=== PATIENT | female | born 1980 | race Caucasian/White ===

== ENCOUNTER 2021-09-10 08:20 | Inpatient (IN) | payer BC ==
[2021-09-10] MEDS ORDERED: LIDOCAINE 1% W/EPI 1:100,000 MDV 50 ML VIAL ONE (08:44)
[2021-09-10] MEDS ORDERED: MORPHINE 4 MG/ML SYR ONE (08:59)
[2021-09-10] MEDS ORDERED: ONDANSETRON 4 MG/2 ML VIAL ONE ×2 (09:00→12:08)
[2021-09-10 09:39] LABS: Absolute Lymphocytes (CBC) 1.6 K/uL (0.7-4.9); Hematocrit 41.4 % (36.0-45.0); Lymphocytes % 10.7 % (15.3-44.8); MPV 7.8 fL (7.6-11.3); RBC Red Blood Cell Count 4.67 M/uL (3.86-4.86)
--- NOTE | 2021-09-10 09:46 | RAD REPORT ---
EXAM DESCRIPTION: CT - Abdomen Pelvis W Contrast - 09/10/2021 9:23 am CLINICAL HISTORY: left sided pelvic abscess COMPARISON: None TECHNIQUE: Biphasic, helical CT imaging of the abdomen and pelvis was performed following 100 ml non -ionic IV contrast. No oral contrast administered. All CT scans are performed using dose optimization technique as appropriate and may include automated exposure control or mA/KV adjustment according to patient size. FINDINGS: No suspicious findings in the lung bases. Liver attenuation value indicates mild fatty infiltration. No focal liver lesion. Portal vein is norm al. No pancreatic or splenic abnormality seen. Gallbladder is distended. No wall thickening or edema evident on CT. Biliary tree within normal range. Symmetric renal function is seen with no hydronephrosis or suspicious renal mass. No pyelonephritis o r acute parenchymal process. Urinary bladder is mostly contracted limiting assessment. No adrenal abn ormalities. An exophytic 12 mm cyst is seen uppermost left kidney with an 18 millimeter simple cyst l ateral inferior right kidney. No dilated bowel loops or bowel wall thickening. Appendectomy clips are present. No acute GI finding identified. Rectosigmoid region anastomosis is present with no acute finding. Patient is believed to be status post reduction of a prior colostomy. . No free air or pneumatosis. No abnormal fluid collec tions in the peritoneal or retroperitoneal spaces. No mass or bulky lymphadenopathy. Small aortoilia c and left inguinal region reactive type lymph nodes are present. A supraumbilical ventral hernias present approximately 6-7 cm in diameter contain only fat. There are 2 defects in the wall 2.8 cm superiorly and 1.6 cm inferiorly at this hernia. This may be a single h ernia or 2 abutting fat filled hernias. Mesh material is present in the low pelvic abdominal wall fro m prior hernia repair. The left lower quadrant there is a hernia defect between the oblique and rectu s abdominis musculature. Bowel extends through this very wide neck defect with no bowel wall thickeni ng or edema of the fatty tissues. No suspicious bony findings. Uterus is partially resected. No focal abnormality at the vaginal cuff. Normal size right ovary is di splaced to the anterior superior aspect of the adnexa. Left ovary contains 3.3 centimeter and 2.3 lyle timeter cysts. The may be an additional 12 millimeter ovarian or paraovarian cyst. There is extensive infectious/inflammatory edema in the mid and left side fatty tissues from the mons pubis to the lower gluteal region traversing the perineum. In the labia region left-side vagina ther e is a 3 x 1 cm low-density collection that may be outer vaginal wall abscess. This extends into the fatty tissues anterior and laterally where there is a defined 6.5 x 1.5 centimeter abscess collection . IMPRESSION: A 6.5 x 1.5 centimeter abscess is present in the fatty tissues left lateral to the outer vaginal wall and labia with suspected small 3 x 1 centimeter abscess in the outer vaginal wall or la radha on the left. Extensive infectious/inflammatory stranding in the midline and left-side fatty tissues from the mons pubis to the lower gluteal fatty tissues. There is no air in the soft tissues. No intraperitoneal or retroperitoneal extension of the infectious/inflammatory process. Gallbladder is distended but no wall thickening or edema evident. No biliary tree dilatation. Multiple abdominal wall hernias as detailed in the body of the report. None show acute findings.
[2021-09-10 09:54] LABS: Albumin 2.7 g/dL (3.4-5.0); Bilirubin Total 0.9 mg/dL (0.2-1.0); Potassium 3.5 mmol/L (3.5-5.1); Protein, Total 7.3 g/dL (6.4-8.2)
[2021-09-10] MEDS ORDERED: VANCOMYCIN 1 GM/VIAL ONE (10:10)
[2021-09-10] MEDS ORDERED: WATER FOR INJ,STERILE 0 ML ONE (10:11)
[2021-09-10] MEDS ORDERED: VANCOMYCIN 1.5 GM in NA CHLORIDE 0.9% 500 ML IVPB ONE (11:00)
--- NOTE | 2021-09-10 11:07 | ER ---
Nurse's Notes [facility] Name: Juan Manuel Moya Age: 40 yrs Sex: Female : 1980 Arrival Date: 09/10/2021 Time: 08:26 Bed 5 Private MD: Diagnosis: Left Labial Cutaneous Abscess Presentation: 09/10 08:32 Chief complaint: Patient states: Shaved a week ago and a bump came up 2 days later, c/o jl7 abscess to left labia major. Coronavirus screen: At this time, the client does not indicate any symptoms associated with coronavirus-19. Ebola Screen: No symptoms or risks identified at this time. Initial Sepsis Screen: Does the patient meet any 2 criteria? No. Patient's initial sepsis screen is negative. Does the patient have a suspected source of infection? No. Patient's initial sepsis screen is negative. Risk Assessment: Do you want to hurt yourself or someone else? Patient reports no desire to harm self or others. Onset of symptoms was September 02, 2021. 08:32 Method Of Arrival: Ambulatory [facility] 08:32 Acuity: CHELSEY 3 jl7 Triage Assessment: 08:34 General: Appears in no apparent distress. uncomfortable, Behavior is calm, cooperative, jl7 appropriate for age. Pain: Complains of pain in pelvis Pain currently is 9 out of 10 on a pain scale. 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 - Social history:: Smoking status: Patient reports the use of cigarette tobacco products, smokes one-half pack cigarettes per day. Screenin:51 Abuse screen: Denies threats or abuse. Nutritional screening: No deficits noted. vg1 Tuberculosis screening: No symptoms or risk factors identified. Fall Risk None identified. Assessment: 08:51 General: Appears in no apparent distress. uncomfortable, Behavior is calm, cooperative. vg1 Pain: Complains of pain in groin Pain currently is 9 out of 10 on a pain scale. Pain began x 1 week. Neuro: Level of Consciousness is awake, alert, obeys commands, Oriented to person, place, time, situation. Cardiovascular: Patient's skin is warm and dry. Respiratory: Airway is patent Respiratory effort is even, unlabored. GI: No signs and/or symptoms were reported involving the gastrointestinal system. : No signs and/or symptoms were reported regarding the genitourinary system. EENT: No signs and/or symptoms were reported regarding the EENT system. Derm: Skin is intact, Skin is red, Abscess located on groin Reports pain. Musculoskeletal: Swelling present in groin. Vital Signs: 08:32 BP 156 / 89; Pulse 103; Resp 17; Temp 99.4(O); Pulse Ox 95% on R/A; Weight 107.95 kg; jl7 Height 5 ft. 3 in. (160.02 cm); Pain 9/10; 09:38 BP 111 / 63; Pulse 89; Resp 17; Pulse Ox 96% ; vg1 11:30 BP 109 / 68; Pulse 78; Resp 14; Pulse Ox 97% on R/A; vg1 08:32 Body Mass Index 42.16 (107.95 kg, 160.02 cm) jl7 ED Course: 08:26 Patient arrived in ED. mr 08:28 Kevin Bowling PA is PHCP. jmm 08:28 Edil Newton MD is Attending Physician. jmm 08:34 Triage completed. jl7 08:34 Arm band placed on right wrist. jl7 08:39 Shantal Wahl, RN is Primary Nurse. vg1 08:51 Patient has correct armband on for positive identification. Placed in gown. Bed in low vg1 position. Call light in reach. Side rails up X 1. 09:08 Initial lab(s) drawn, by me, sent to lab. Inserted saline lock: 20 gauge in left vg1 antecubital area, using aseptic technique. Blood collected. 09:08 First set of blood cultures drawn by me. vg1 09:22 CT Abd/Pelvis - IV Contrast Only In Process Unspecified. EDMS 09:[address] from [address]. vg1 11:00 Assist provider with pelvic exam: Set up pelvic tray. Performed by Kevin CEJA. iw 11:06 Kyaw Rodriguez is Hospitalizing Provider. m 11:34 to OR, with Nurse. vg1 Administered Medications: : Drug: Zofran (Ondansetron) 4 mg Route: IVP; Site: left antecubital; vg1 09:45 Follow up: Response: No adverse reaction vg1 09:11 Drug: morphine 4 mg Route: IVP; Site: left antecubital; vg1 09:45 Follow up: Response: No adverse reaction; Marked relief of symptoms vg1 11:06 Drug: vancoMYCIN 1.5 grams Route: IVPB; Rate: calculated rate; Site: left antecubital; iw 11:36 Follow up: IV Status: Infusion continued upon admission; pt taken to OR with IV vg1 antibiotics 11:26 Not Given (Physician Discretion): Lidocaine-Epinephrine -1%: (1:100,000) 20 ml 20 ml vg1 Infiltration once; to bedside Intake: Outcome: : Decision to Hospitalize by Provider. jmm 12:21 Patient left the ED. eb Signatures: Dispatcher [employer] EDMS Kevin Bowling PA PA jmm Rivera, Mary mr Williams, Irene, RN RN Neal Barber RN RN Karol Saez Victoria, RN RN vg1
--- NOTE | 2021-09-10 11:07 | EDPHYS ---
Physician Documentation [facility] Name: Juan Manuel Moya Age: 40 yrs Sex: Female : 1980 Arrival Date: 09/10/2021 Time: 08:26 Bed 5 Private MD: ED Physician Edil Newton HPI: 09/10 08:52 This 40 yrs old Female presents to ER via Ambulatory with complaints of Abscess. jmm 08:52 The patient presents with cellulitis of the pelvis. Onset: The symptoms/episode jmm began/occurred gradually, 2 day(s) ago. Possible cause(s): recently shaved area. Associated signs and symptoms: Pertinent positives: drainage, erythema, swelling. Modifying factors: the symptoms are alleviated by nothing, the symptoms are aggravated by pressure. The patient has not experienced similar symptoms in the past. 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 - Social history:: Smoking status: Patient reports the use of cigarette tobacco products, smokes one-half pack cigarettes per day. ROS: 08:52 Constitutional: Negative for fever, chills, and weight loss, Cardiovascular: Negative jmm for chest pain, palpitations, and edema, Respiratory: Negative for shortness of breath, cough, wheezing, and pleuritic chest pain. 08:52 Skin: Positive for abscess. 08:52 All other systems are negative. Exam: 08:52 Constitutional: This is a well developed, well nourished patient who is awake, alert, jmm and in no acute distress. Head/Face: atraumatic. Eyes: EOMI, no conjunctival erythema appreciated ENT: Moist Mucus Membranes Neck: Trachea midline, Supple Chest/axilla: Normal chest wall appearance and motion. Cardiovascular: Regular rate and rhythm. No edema appreciated Respiratory: Normal respirations, no respiratory distress appreciated Abdomen/GI: Non distended, soft 08:52 Skin: erythema and induration appreciated to the left labial region extending into the perineum. 08:52 Neuro: Orientation: is normal, Mentation: is normal, Memory: is normal. 08:52 Psych: Behavior/mood is pleasant, cooperative. Vital Signs: 08:32 BP 156 / 89; Pulse 103; Resp 17; Temp 99.4(O); Pulse Ox 95% on R/A; Weight 107.95 kg; jl7 Height 5 ft. 3 in. (160.02 cm); Pain 9/10; 09:38 BP 111 / 63; Pulse 89; Resp 17; Pulse Ox 96% ; vg1 11:30 BP 109 / 68; Pulse 78; Resp 14; Pulse Ox 97% on R/A; vg1 08:32 Body Mass Index 42.16 (107.95 kg, 160.02 cm) jl7 MDM: 08:50 Patient medically screened. [facility] 11:02 Data reviewed: vital signs, nurses notes. Counseling: I had a detailed discussion with [facility] the patient and/or guardian regarding:. 11:03 Counseling: I had a detailed discussion with the patient and/or guardian regarding: the [facility] historical points, exam findings, and any diagnostic results supporting the discharge/admit diagnosis, lab results, radiology results, the need for further work-up and treatment in the hospital. ED course: I discussed the patient with Dr. Acharya whom evaluated the patient at bedside. will take the patient to the or. requested consultation with gyn. [place] was contacted, is currently out of state. Left voicemail with Dr. Mccracken . I discussed the patient with Dr. Rodriguez whom accepted the patient to his service. . 09/10 08:50 Order name: CBC with Diff; Complete Time: 09:41 [facility] 09/10 08:50 Order name: CMP; Complete Time: 09:57 [facility] 09/10 08:50 Order name: Procalcitonin; Complete Time: 10:12 [facility] 09/10 08:50 Order name: Lactate; Complete Time: 10:05 [facility] 09/10 08:50 Order name: Blood Culture Adult (2) [facility] 09/10 10:12 Order name: SARS-COV-2 RT PCR (Document "Date of Onset" if Symptomatic) [facility] 09/10 08:38 Order name: Gown patient; Complete Time: 08:40 [facility] 09/10 08:50 Order name: Saline Lock; Complete Time: 09:19 [facility] 09/10 08:51 Order name: CT Abd/Pelvis - IV Contrast Only; Complete Time: 09:49 [facility] 09/10 10:13 Order name: SARS-COV-2 RT PCR; Complete Time: 11:38 EDMS Administered Medications: 09:09 Drug: Zofran (Ondansetron) 4 mg Route: IVP; Site: left antecubital; vg1 09:45 Follow up: Response: No adverse reaction vg1 09:11 Drug: morphine 4 mg Route: IVP; Site: left antecubital; vg1 09:45 Follow up: Response: No adverse reaction; Marked relief of symptoms vg1 11:06 Drug: vancoMYCIN 1.5 grams Route: IVPB; Rate: calculated rate; Site: left antecubital; iw 11:36 Follow up: IV Status: Infusion continued upon admission; pt taken to OR with IV vg1 antibiotics 11:26 Not Given (Physician Discretion): Lidocaine-Epinephrine -1%: (1:100,000) 20 ml 20 ml vg1 Infiltration once; to bedside Disposition: 19:28 Co-signature as Attending Physician, Edil Newton MD I agree with the assessment and kdr plan of care. Disposition Summary: 09/10/21 11:06 Hospitalization Ordered Hospitalization Status: Inpatient Admission [facility] Provider: Kyaw Rodriguez [facility] Condition: Stable [facility] Problem: new [facility] Symptoms: are unchanged [facility] Bed/Room Type: Standard [facility] Room Assignment: [facility] Diagnosis - Left Labial Cutaneous Abscess [facility] Forms: - Medication Reconciliation Form [facility] - SBAR form [facility] Signatures: Dispatcher [employer] EDMS Edil Newton MD MD kdr Kevin Bowling PA PA [facility] Alpa Jimenez, RN Neal New RN RN jl7 Shantal Wahl RN RN vg1
[2021-09-10] MEDS ORDERED: BUPIVACAINE 0.5% PF 10 ML VIAL ONE (11:38)
[2021-09-10] MEDS ORDERED: SODIUM HYPOCHLORITE 0.5% 473 ML ONE (11:38)
[2021-09-10] MEDS ORDERED: propofoL 200 MG/20 ML VIAL IV ONE (11:43)
[2021-09-10] MEDS ORDERED: FENTANYL CITR 100 MCG/2 ML ONE (11:43)
[2021-09-10] MEDS ORDERED: LIDOCAINE 2% MPF 5 ML VIAL ONE (11:43)
[2021-09-10] MEDS ORDERED: SODIUM HYPOCHLORITE 0.25% 473 ML ONE (11:48)
[2021-09-10] MEDS ORDERED: Ringers Lactate 1,000 ML IV ONE (11:52)
--- NOTE | 2021-09-10 11:54 | P.HP ---
Certification for Inpatient Patient admitted to: Inpatient With expected LOS: >2 Midnights Practitioner: I am a practitioner with admitting privileges, knowledge of patient current condition, hospital course, and medical plan of care. Services: Services provided to patient in accordance with Admission requirements found in Title 42 Section 412.3 of the Code of Federal Regulations Patient History Date of Service: 09/10/21 Reason for admission: Labia swelling and pain History of Present Illness: 40-year-old woman with a history of anxiety and depression, history of multiple abdominal surgeries for complications of diverticulosis including bowel resection, end-to-end anastomosis, colostomy reversal presented to the emergency department with a complaint of progressive pain and swelling of the left labia. Patient stated her symptoms started after she shaved her pubic area 1 week ago. She felt a lump that progressively became bigger and painful. She denies any fever. CT abdomen pelvis done in the emergency department demonstrate multiple abscesses-lateral to the left vagina wall, left labia and inflammatory stranding from the mons pubis to the gluteal area. General surgery Dr. Acharya informed who is planning I&D in the OR. He also plans to involve gynecology and requested for patient to be admitted to the hospitalist service. Allergies No Known Allergies Allergy (Verified 09/10/21 10:13) - Past Medical/Surgical History -: Anxiety disorder -: Depression -: Hernia -: Multiple abdominal surgeries -: Status post wound VAC for abdominal wound -: History of bowel resection with end-to-end anastomosis -: Colostomy with reversal - Family History Father -: Diabetes Mother -: Diabetes - Social History Smoking Status: Current every day smoker Alcohol use: No CD- Drugs: No Place of Residence: Home Review of Systems Other: Except as documented, all other systems reviewed and negative. Physical Examination - Physical Exam General: Alert, In no apparent distress, Oriented x3 HEENT: Mucous membr. moist/pink, Sclerae nonicteric Neck: Supple, JVD not distended Respiratory: Clear to auscultation bilaterally, Normal air movement Cardiovascular: No edema, Regular rate/rhythm, Normal S1 S2, No murmurs Capillary refill: <2 Seconds Gastrointestinal: Normal bowel sounds, Soft and benign, Non-distended, No tenderness Musculoskeletal: No swelling, No tenderness Integumentary: No rashes, No erythema Neurological: Normal speech, Normal strength at 5/5 x4 extr, Cranial nerves 3-12 intact Lymphatics: No axilla or inguinal lymphadenopathy External genitalia: Other (Erythema noted on the left aspect of mons pubis) - Studies Laboratory Data (last 24 hrs) 09/10/21 09:08: Sodium 134 L, Potassium 3.5, BUN 5 L, Creatinine 0.92, Glucose 147 H, Total Bilirubin 0.9, AST 17, ALT 18, Alkaline Phosphatase 102 09/10/21 09:08: WBC 14.60 H, Hgb 13.2, Hct 41.4, Plt Count 297 Assessment and Plan - Problems (Diagnosis) (1) Pelvic abscess in female Current Visit: Yes Status: Acute (2) Anxiety and depression Current Visit: Yes Status: Acute - Plan Admit patient to the medical floor. Start broad-spectrum antibiotics-IV cefepime, vancomycin and Flagyl. Dr. Acharya is aware of the patient and planning surgery. He plans to involve Dr. Mccracken. Pain management with IV morphine. IV hydration. Monitor CBC to follow leukocytosis. Reconcile and continue other home medications. - Advance Directives Does patient have a Living Will: No Does patient have a Durable POA for Healthcare: No
[2021-09-10] MEDS ORDERED: dexAMETHasone 10 MG/ML VIAL ONE (12:08)
[2021-09-10] MEDS ORDERED: KETOROLAC 30 MG/ML INJ ONE (12:08)
--- NOTE | 2021-09-10 12:41 | P.OP ---
Preoperative diagnosis: LEFT Labial / Perineal Abscess Postoperative diagnosis: LEFT Labial / Perineal Abscess Primary procedure: Incision, Drainage and Debridement of LEFT Labial / Perineal Abscess Anesthesia: GETA + Local Estimated blood loss: 30cc Specimen: Cultures, Debridement Tissue Findings: 12cm x 8cm x 6cm abscess, necrotic tissue up to muscle Complications: None Transferred to: Recovery Room Condition: Good
[2021-09-10] MEDS: FENTANYL CITR 100 MCG/2 ML ONE ×4 (12:53→13:12)
[2021-09-10] MEDS ORDERED: ONDANSETRON 4 MG/2 ML VIAL IV PRN (13:02)
--- NOTE | 2021-09-10 13:10 | OP ---
Date of Procedure: 09/10/2021 Surgeon: Tonny Acharya MD, Preoperative Diagnosis: Left labial and perineal abscess. Postoperative Diagnosis: Left labial and perineal abscess. Procedure Performed: Incision and drainage with debridement of left labial/perineal abscess and necr otic tissue. Anesthesia: General endotracheal plus local with 0.25% Marcaine without epinephrine. Estimated Blood Loss: 30 cc. Specimen: Cultures and debridement tissue. Findings: Approximately 12 cm x 8 cm x 6 cm abscess and necrotic tissue cavity with necrotic tissues extending up to the muscle in the perineum. Complications: None. Disposition: The patient was transferred to recovery room in good condition. Procedure In Detail: After informed consent was obtained, the patient was brought to the operating r oom, prepped and draped in the usual sterile fashion after adequate anesthesia was achieved. I made a linear incision overlying the left labia down through a significant area of induration and fluctuan ce. I immediately encountered abscess, arshad murky fluid. This was cultured for both aerobic and luis erobic speciation. I then digitally examined the cavity and found to be in a stellate type configura tion with tracking anterior posteriorly. No obvious vaginal or rectal involvement by palpation; cortez rox, the cavity extended to the deep tissues including the fascia overlying the muscle of the perineu m. Dissection continued down circumferentially to remove all this necrotic tissue. Some of the necr otic tissue was sent for pathologic examination. I then cleaned out all necrotic tissue and removed all affected tissues that had the murky arshad fluid of concern. After this area was cleaned out compl etely, a pulse lavage was performed to thoroughly irrigate the area. Hemostasis was achieved electro cautery after all necrotic tissue was debrided. The cavity was once again reexamined for hemostasis. No additional hemostatic was required. I then packed the wound with Dakin-soaked Kerlix with 0.25% Dakin solution on the Kerlix, wrung dry, and packed tightly into the wound and a sterile dressing pl aced over top. The patient tolerated the procedure well without evidence of complication and transfe rred to PACU in good condition. All counts were correct at the end of the case. TK/MODL Voice ID: [id number] Report ID: [id number]
--- NOTE | 2021-09-10 13:31 | CON ---
Date of Consultation: 09/10/2021 Brief History Of Present Illness: The patient is a 40-year-old female with a history of anxiety, dep ression, multiple abdominal surgeries, complications from diverticulitis including colostomy creation reversal, who shaved her pubic area approximately 1 week ago and noticed some swelling and tendernes s on the left labial skin. It got progressively worse, larger, more tender, and ultimately spread al l the way through her mons pubis area and adjacent to the buttock area on the same side. There was n o crossing or midline. She has never had similar episodes before in the past of this type. Past Medical History: Sever anxiety, depression, abdominal hernia, multiple abdominal surgeries, div erticulitis. Past Surgical History: Colostomy creation, colostomy reversal, ventral hernia repair, and multiple o ther abdominal surgeries including hysterectomy. Allergies: NO KNOWN DRUG ALLERGIES. Social History: Her mother had diabetes. Social History: She has a positive smoking history with a 20+ pack-year history of cigarettes. She denies alcohol or recreational drug use. Review of Systems: Ten-point review of systems other than HPI, denies. Physical Examination: Vital Signs: At the time of my examination; her BMI was 42.2. She is 5 feet 3 inches, 237 pounds. General: She is awake, alert, oriented. Psychiatric: She is appropriate, conversive. HEENT: Normocephalic. Sclerae anicteric. Mucous membranes moist. Oropharynx clear. Neck: Supple without JVD. Chest: Normal expansion and excursion. Cardiovascular: Regular rate and rhythm. Pulmonary: Clear to auscultation bilaterally. Abdomen: Soft, nontender, nondistended. She has palpable ventral midline incisional hernias and wel l-healed surgical scars were evident. Extremities: No clubbing, cyanosis, edema. Focused examination of the perineum, she has a large are a of induration and fluctuance on the left pubic mons area and labial area with extension to the butt ock. Cellulitis is evident. This area is tender. There is no drainage at this point. Laboratory Data: Reveals a white blood count 14.6, hemoglobin 13.2, hematocrit of 41.4, platelet cou nt is 297. Neutrophils are 83%. Sodium 134, potassium 3.5, chloride 103, carbon dioxide 24, BUN 5, creatinine 0.92, glucose 147, lactic acid 0.7. AST was 17, ALT 18, total bilirubin 0.9. Procalciton in 0.12. COVID was negative. She had imaging performed, which included a CT of the abdomen and pelv is on 09/10/2021, which was officially read as a 6.5 x 1.5 cm abscess present in the fatty tissue, le ft lateral to the outer vaginal wall and labia suspect with a 3.1 cm abscess in the outer vaginal wal l or labia on the left, extensive infectious inflammatory stranding in the midline and left-sided fat ty tissue from the mons pubis to the lower gluteal fatty tissues. No air in the soft tissue. No int raperitoneal, retroperitoneal extension of inflammatory process. Gallbladder is distended. No wall thickening or edema evident. Multiple abdominal hernias, which showed no acute findings. She has pink praumbilical ventral hernias present with approximately 6 to 7 cm in diameter only containing fat, 2 defects in the wall, 2.8 cm superiorly, 1.6 cm fairly at this hernia. This may be a single hernia or 2 abutting fat filled hernias. Mesh material is present in the low pelvic abdominal wall from previ ous hernia repair. To the left lower quadrant, there was a hernia defect between the oblique and rec tus abdominis musculature. Fairly extensive very wide neck defect with no bowel wall thickening or e fransico and fatty tissues. Assessment And Plan: This is a 40-year-old female, who comes in with a labial/gluteal/perineal absce ss. 1.IV fluid hydration. 2.Antibiotic coverage. 3.I have explained risks, benefits, and alternatives of incision and drainage and debridement of thi s left labial and perineal abscess including, but not limited to bleeding, infection, damage to surro unding tissues, need for further operation and procedures. The patient agrees to proceed as indicated. Thank you for this interesting consult. CARLOS/BERNIE Voice ID: [id number] Report ID: [id number]
[2021-09-10 13:39] VITALS: BMI 42.1
[2021-09-10] MEDS ORDERED: VANCOMYCIN 500 MG in NA CHLORIDE 0.9% 100 ML IVPB ONE (13:45)
[2021-09-10] MEDS: NA CHLORIDE 0.9% 1,000 ML IV SCH ×2 (14:06→23:02)
[2021-09-10] MEDS: MORPHINE 2 MG/ML SYR IV PRN ×2 (15:38→20:26)
[2021-09-10] MEDS: CEFEPIME 1 GM in NA CHLORIDE 0.9% 100 ML IV SCH (16:42)
[2021-09-10] MEDS: METRONIDAZOLE 500mg IVPB 500 MG/100 ML BAG IV SCH (16:43)
[2021-09-10] MEDS ORDERED: POTASSIUM CL SA 10 MEQ TAB PO ONE (21:00)
[2021-09-10] MEDS ORDERED: KCL 20 MEQ/100 mL IVPB 20 MEQ/100 ML BAG IV SCH (21:00)
[2021-09-11 00:09] LABS: Urine Appearance CLEAR (Clear); Urine Bilirubin NEGATIVE (Negative); Urine Blood 2+ (Negative); Urine Color DK YELLOW (Yellow); Urine Glucose NEGATIVE (Negative); Urine Protein 1+ (Negative); Urine Specific Gravity >=1.030 (1.005-1.030); Urine Urobilinogen 0.2 mg/dL (0.2-1.0)
[2021-09-11 00:12] LABS: Urine Microscopic Reflex ORDER UMIC
[2021-09-11] MEDS: CEFEPIME 1 GM in NA CHLORIDE 0.9% 100 ML IV SCH ×2 (00:16→08:10)
[2021-09-11] MEDS: MORPHINE 2 MG/ML SYR IV PRN ×3 (00:17→08:09)
[2021-09-11] MEDS: METRONIDAZOLE 500mg IVPB 500 MG/100 ML BAG IV SCH ×2 (00:17→08:10)
[2021-09-11 01:09] LABS: Urine Bacteria <20 /HPF (<20); Urine Mucus LIGHT /HPF (NONE SEEN)
[2021-09-11 03:05] VITALS: O2SAT 93
[2021-09-11 05:46] LABS: Absolute Lymphocytes (CBC) 1.1 K/uL (0.7-4.9); Hematocrit 37.7 % (36.0-45.0); Lymphocytes % 7.7 % (15.3-44.8); MPV 7.8 fL (7.6-11.3); RBC Red Blood Cell Count 4.21 M/uL (3.86-4.86)
[2021-09-11] MEDS: NA CHLORIDE 0.9% 1,000 ML IV SCH (05:57)
[2021-09-11] MEDS ORDERED: VANCOMYCIN 2 GM in NA CHLORIDE 0.9% 500 ML IVPB SCH (06:00)
[2021-09-11 06:09] LABS: Magnesium 2.1 mg/dL (1.8-2.4); Phosphorus 2.1 mg/dL (2.5-4.9); Potassium 4.5 mmol/L (3.5-5.1)
[2021-09-11] MEDS: POTASS/SODIUM PHOSPHATE 1 PKT POWD.PACK PO SCH ×3 (06:38→10:53)
[2021-09-11 07:26] LABS: Blood Morphology Comment NOT SEEN (NOT SEEN); Platelet Estimate ADEQ; White Blood Cell Scan OK (OK)
[2021-09-11] MEDS ORDERED: MORPHINE 4 MG/ML SYR IV PRN (07:51)
--- NOTE | 2021-09-11 08:16 | P.PN ---
Subjective Date of Service: 09/11/21 Chief Complaint: Labia swelling and pain Subjective: Improving (Patient feels much better) Physical Examination - Vital Signs Temperature: 97.2 F Blood Pressure: 104/62 Pulse: 64 Respirations: 18 Pulse Ox (%): 94 - Physical Exam General: Alert, In no apparent distress, Cooperative Integumentary: Other (Wound is dry, packed) - Studies Laboratory Data (last 24 hrs) 09/10/21 09:08: Sodium 134 L, Potassium 3.5, BUN 5 L, Creatinine 0.92, Glucose 147 H, Total Bilirubin 0.9, AST 17, ALT 18, Alkaline Phosphatase 102 09/10/21 09:08: WBC 14.60 H, Hgb 13.2, Hct 41.4, Plt Count 297 Assessment And Plan - Current Problems (Diagnosis) (1) Pelvic abscess in female Current Visit: Yes Status: Acute Plan: - continue antibiotics - daily dressing changes - will arrange for home health - can DC home from surgical standpoint - follow up in clinic in 1 week
[2021-09-11 13:53] VITALS: BP 140/67; TEMP 97.8
--- NOTE | 2021-09-11 14:01 | P.DS ---
Admission Date: 09/10/21 Discharge Date: 09/11/21 Disposition: ROUTINE DISCHARGE Discharge Condition: FAIR Reason for Admission: Labia swelling and pain - Problems (1) Pelvic abscess in female Current Visit: Yes Status: Acute (2) Anxiety and depression Current Visit: Yes Status: Acute Brief History of Present Illness: 40-year-old woman with a history of anxiety and depression, history of multiple abdominal surgeries for complications of diverticulosis including bowel resection, end-to-end anastomosis, colostomy reversal presented to the emergency department with a complaint of progressive pain and swelling of the left labia. Patient stated her symptoms started after she shaved her pubic area 1 week ago. She felt a lump that progressively became bigger and painful. She denies any fever. CT abdomen pelvis done in the emergency department demonstrate multiple abscesses-lateral to the left vagina wall, left labia and inflammatory stranding from the mons pubis to the gluteal area. General surgery Dr. Acharya informed recommended I&D in the OR. Patient admitted to the hospitalist service for further management. Hospital Course: Patient admitted to the medical floor and started on broad-spectrum IV antibiotics including IV vancomycin, IV cefepime and IV Flagyl. Dr. Acharya saw patient, examined her in OR and found approximately 12 cm x 8 cm x 6 cm abscess and necrotic tissue cavity with necrotic tissues extending up to the muscle in the perineum. He performed incision and drainage of left labia and perineal abscess as well as necrosis debridement, wound was packed. Patient was monitored as inpatient. At this point, Dr. Acharya recommended discharge with oral antibiotic, and home health for wound care. He will follow with patient in the office for further evaluation and management. Patient prescribed Augmentin and Bactrim. Vital Signs/Physical Exam: Temp Pulse Resp BP Pulse Ox 97.8 F 73 18 140/67 95 09/11/21 12:00 09/11/21 12:00 09/11/21 12:00 09/11/21 12:09/11/21 12:00 General: Alert, In no apparent distress, Oriented x3 HEENT: Mucous membr. moist/pink Neck: JVD not distended Respiratory: Clear to auscultation bilaterally, Normal air movement Cardiovascular: Regular rate/rhythm, Normal S1 S2 Gastrointestinal: Soft and benign, Non-distended Musculoskeletal: No swelling Integumentary: No rashes Neurological: Normal strength at 5/5 x4 extr Laboratory Data at Discharge: WBC 13.80 K/uL (4.3-10.9) H 09/11/21 05:23 Hgb 12.0 g/dL (12.0-15.0) 09/11/21 05:23 Hct 37.7 % (36.0-45.0) 09/11/21 05:23 Plt Count 322 K/uL (152-406) 09/11/21 05:23 Sodium 138 mmol/L (136-145) 09/11/21 05:23 Potassium 4.5 mmol/L (3.5-5.1) 09/11/21 05:23 BUN 10 mg/dL (7-18) 09/11/21 05:23 Creatinine 0.79 mg/dL (0.55-1.3) 09/11/21 05:23 Glucose 125 mg/dL (74-106) H 09/11/21 05:23 Phosphorus 2.1 mg/dL (2.5-4.9) L 09/11/21 05:23 Magnesium 2.1 mg/dL (1.8-2.4) 09/11/21 05:23 Total Bilirubin 0.9 mg/dL (0.2-1.0) 09/10/21 09:08 AST 17 U/L (15-37) 09/10/21 09:08 ALT 18 U/L (12-78) 09/10/21 09:08 Alkaline Phosphatase 102 U/L (45-117) 09/10/21 09:08 Home Medications: Gabapentin [Neurontin*] 1 tab PO TID 09/10/21 Sertraline [Zoloft*] 1 tab PO DAILY 09/10/21 Tramadol HCl [Ultram] 1 tab PO PRN PRN 09/10/21 Amox/Clavulanate [Augmentin 875-125 Tab] 875 mg PO BID #20 tab 09/11/21 Codeine/APAP [Tylenol W/Codeine #3 tab] 1 tab PO Q6HP PRN #30 tab 09/11/21 Smz./Tmp. [Bactrim Ds 800 MG/160 MG] 1 tab PO BID #20 tab 09/11/21 New Medications: Codeine/APAP [Tylenol W/Codeine #3 tab] 1 tab PO Q6HP PRN #30 tab PRN Reason: Pain Amox/Clavulanate [Augmentin 875-125 Tab] 875 mg PO BID #20 tab Smz./Tmp. [Bactrim Ds 800 MG/160 MG] 1 tab PO BID #20 tab Diet: ADA Activity: Ad evita Followup: Tonny Acharya MD [ACTIVE - CAN ADMIT] - OOT,OOT [Primary Care Provider] - Time spent managing pt's care (in minutes): 35
== END 2021-09-11 18:00 | disposition home health service (06) | DRG 982 ==
LOC: ER 08:20 → 2ND 11:39
PROVIDERS: ADMIT Internal Medicine; ATTEND Internal Medicine
PROC: 0KDM0ZZ Extraction of Perineum Muscle, Open Approach (ICD-10-PCS; principal; 2021-09-10 12:00)
DX: N76.4 Abscess of vulva (principal); L02.215 Cutaneous abscess of perineum; L03.317 Cellulitis of buttock; L03.315 Cellulitis of perineum; F41.8 Other specified anxiety disorders; K57.90 Diverticulosis of intestine, part unspecified, without perforation or abscess without bleeding; K43.9 Ventral hernia without obstruction or gangrene; Z20.822 Contact with and (suspected) exposure to COVID-19
CPT/HCPCS: 36415; 74177; 80048; 80053; 81003; 81015; 82565; 83605; 83735; 84100; 84145; 85025; 87040; 87070; 87075; 87077; 87186; 87205; 88304; 96365; 96375; 99284; J0692; J1100; J2270; J2405; J2704; J3010; J3370; J7030; J7040; J7120; Q9967; U0003

== ENCOUNTER 2022-02-03 00:32 | Emergency (ER) | payer BC ==
[2022-02-03] MEDS ORDERED: Levofloxacin 750mg IV 750 MG/150 ML BAG IV ONE (01:13)
[2022-02-03] MEDS ORDERED: MORPHINE 4 MG/ML SYR ONE ×3 (01:13→07:15)
[2022-02-03] MEDS ORDERED: NA CHLORIDE 0.9% 1,000 ML ONE (01:13)
[2022-02-03] MEDS ORDERED: METRONIDAZOLE 500mg IVPB 500 MG/100 ML BAG IV ONE (01:13)
[2022-02-03] MEDS ORDERED: ONDANSETRON 4 MG/2 ML VIAL ONE ×2 (01:13→04:34)
[2022-02-03 01:16] LABS: Absolute Lymphocytes (CBC) 2.2 K/uL (0.7-4.9); Hematocrit 45.2 % (36.0-45.0); Lymphocytes % 13.1 % (15.3-44.8); MCV 87.4 fL (80-100); MPV 7.7 fL (7.6-11.3); RBC Red Blood Cell Count 5.18 M/uL (3.86-4.86)
[2022-02-03 01:31] LABS: Albumin 3.9 g/dL (3.4-5.0); Bilirubin Total 0.8 mg/dL (0.2-1.0); Potassium 3.6 mmol/L (3.5-5.1); Protein, Total 8.2 g/dL (6.4-8.2)
[2022-02-03 01:44] LABS: Urine Blood 2+ (Negative); Urine Glucose Negative (Negative); Urine Protein 2+ (Negative); Urine Specific Gravity >=1.030 (1.005-1.030); Urine pH 5.5 (5.0-7.0)
[2022-02-03 01:57] LABS: Urine Amorphous Sediment 1+ /HPF (NONE SEEN); Urine Bacteria 20-50 /HPF (<20); Urine Mucus 3+ /HPF (NONE SEEN)
[2022-02-03] MEDS ORDERED: HYDROMORPHONE HCL 1 MG/ML INJ ONE (02:49)
[2022-02-03] MEDS ORDERED: CEFTRIAXONE 1000 MG/VIAL ONE (02:50)
[2022-02-03] MEDS ORDERED: NA CHLORIDE 0.9% 50 ML ONE (02:50)
--- NOTE | 2022-02-03 06:00 | ER ---
Nurse's Notes [facility] Name: Juan Manuel Moya Age: 41 yrs Sex: Female : 1980 Arrival Date: 02/03/2022 Time: 00:36 Bed 16 Private MD: Diagnosis: Abdominal tenderness;Elevated white blood cell count;Other and unspecified ovarian cysts-4.2 cm left ovarian cyst;Torsion of ovary and ovarian pedicle, unspecified side-left Presentation: 02/03 00:49 Chief complaint: Patient states: "I started having some pain on Saturday but tonight it vc1 just got worse. Now I'm having trouble urinating.". Coronavirus screen: Vaccine status: Patient reports being unvaccinated. At this time, the client does not indicate any symptoms associated with coronavirus-19. Ebola Screen: No symptoms or risks identified at this time. Initial Sepsis Screen: Does the patient meet any 2 criteria? RR > 20 per min. No. Patient's initial sepsis screen is negative. Does the patient have a suspected source of infection? Yes: Acute abdominal pain. Risk Assessment: Do you want to hurt yourself or someone else? Patient reports no desire to harm self or others. Onset of symptoms was January 30, 2022. 00:49 Method Of Arrival: Ambulatory vc1 00:49 Acuity: CHELSEY 3 vc1 Triage Assessment: 00:50 General: Appears in no apparent distress. Behavior is crying. Pain: Complains of pain vc1 in left low back, right low back and right lower quadrant Pain currently is 10 out of 10 on a pain scale. Quality of pain is described as sharp, Also complains of unable to urinate. EENT: No deficits noted. Neuro: Level of Consciousness is awake, Oriented to person, place, time, situation, Appropriate for age. Cardiovascular: Capillary refill < 3 seconds Patient's skin is warm and dry. Respiratory: Airway is patent Respiratory effort is even, unlabored, Respiratory pattern is regular, symmetrical. GI: Reports lower abdominal pain, epigastric pain. : Reports inability to void. Derm: Skin is intact, is healthy with good turgor, Skin temperature is warm. Musculoskeletal: No deficits noted. 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 Flu vaccine is not up to date. Patient has never been vaccinated. - Social history:: Smoking status: Patient reports the use of cigarette tobacco products, 5 cigs daily. Screenin:53 Abuse screen: Denies threats or abuse. Nutritional screening: No deficits noted. vc1 Tuberculosis screening: No symptoms or risk factors identified. Fall Risk None identified. Assessment: 03:32 Reassessment: Patient and/or family updated on plan of care and expected duration. Pain vc1 level reassessed. Patient is alert, oriented x 3, equal unlabored respirations, skin warm/dry/pink. Patient states feeling better. Patient states symptoms have improved. 04:20 Reassessment: Patient and/or family updated on plan of care and expected duration. Pain vc1 level reassessed. Patient is alert, oriented x 3, equal unlabored respirations, skin warm/dry/pink. Patient states feeling better. Patient states symptoms have improved. 06:00 Reassessment: No changes from previously documented assessment. Patient and/or family sm5 updated on plan of care and expected duration. Pain level reassessed. 07:05 Reassessment: received VO from Dr Weiss to administer morphine 4 mg IVP x1. vg1 07:05 General: Appears in no apparent distress. uncomfortable, Behavior is calm, cooperative. vg1 Pain: Complains of pain in left lower quadrant Pain currently is 7 out of 10 on a pain scale. Quality of pain is described as sharp, stabbing. Neuro: Rodriguez Agitation-Sedation Scale (RASS): +1 Restless Level of Consciousness is awake, alert, obeys commands, Oriented to person, place, time, situation. Cardiovascular: Patient's skin is warm and dry. Respiratory: Airway is patent Respiratory effort is even, unlabored. GI: No signs and/or symptoms were reported involving the gastrointestinal system. : No signs and/or symptoms were reported regarding the genitourinary system. EENT: No signs and/or symptoms were reported regarding the EENT system. Derm: Skin is intact, is healthy with good turgor. Musculoskeletal: Circulation, motion, and sensation intact. 08:31 Reassessment: Patient appears in no apparent distress at this time. Patient and/or vg1 family updated on plan of care and expected duration. Pain level reassessed. Patient is alert, oriented x 3, equal unlabored respirations, skin warm/dry/pink. rated pain 5/10. Vital Signs: 00:45 BP 160 / 105 RA Supine (auto/reg); Pulse 92 MON; Resp 22 S; Temp 97.3(O); Pulse Ox 99% ds4 on R/A; Weight 107.95 kg (R); Height 5 ft. 3 in. (160.02 cm) (R); Pain 10/10; 03:30 BP 138 / 90; Pulse 65; Resp 20; Pulse Ox 94% on R/A; vc1 04:20 BP 126 / 80; Pulse 65; Resp 21; Pulse Ox 94% on R/A; vc1 06:55 BP 120 / 86; Pulse 58; Resp 17; Pulse Ox 97% on R/A; sm5 07:00 BP 131 / 80; Pulse 60; Resp 16; Pulse Ox 97% on R/A; vg1 08:37 BP 138 / 81; Pulse 59; Resp 16; Pulse Ox 99% on R/A; vg1 00:45 Body Mass Index 42.16 (107.95 kg, 160.02 cm) ds4 ED Course: 00:36 Patient arrived in ED. bp1 00:39 Bobby Weiss MD is Attending Physician. lyndsey 00:49 Michaela Garcia, RN is Primary Nurse. vc1 00:50 Triage completed. vc1 00:53 Arm band placed on right wrist. vc1 00:54 Patient has correct armband on for positive identification. Bed in low position. Call vc1 light in reach. Pulse ox on. NIBP on. 01:43 CT Abd/Pelvis - IV Contrast Only In Process Unspecified. EDMS 04:22 US Transvaginal Study (Probe) In Process Unspecified. EDMS 08:43 No provider procedures requiring assistance completed. Patient transferred, IV remains vg1 in place. Administered Medications: 01:16 Drug: morphine 4 mg Route: IVP; Infused Over: 4 mins; Site: left antecubital; vc1 02:30 Follow up: Response: No adverse reaction; Pain is unchanged, physician notified vc1 01:17 Drug: NS 0.9% 1000 ml Route: IV; Rate: 1 bolus; Site: left antecubital; vc1 01:17 Drug: Zofran (Ondansetron) 4 mg Route: IVP; Site: left antecubital; vc1 04:19 Follow up: Response: No adverse reaction; Marked relief of symptoms; Nausea is decreasedvc1 01:59 Drug: levofloxacin 750 mg Volume: 150 ml; Route: IVPB; Infused Over: 90 mins; Site: vc1 right antecubital; 01:59 Drug: Flagyl (metroNIDAZOLE) 500 mg Volume: 100 ml; Route: IVPB; Rate: 200 ml/hr; vc1 Infused Over: 30 mins; Site: right antecubital; 02:47 Drug: Dilaudid (HYDROmorphone) 1 mg Route: IVP; Site: left antecubital; vc1 04:00 Follow up: Response: No adverse reaction; Marked relief of symptoms; Pain is decreased; vc1 RASS: Alert and Calm (0) 03:00 Drug: Rocephin (cefTRIAXone) 2 grams Route: IV; Rate: per protocol; Site: left vc1 antecubital; 04:27 Drug: morphine 4 mg Route: IVP; Infused Over: 4 mins; Site: left antecubital; sm5 07:01 Follow up: Response: No adverse reaction sm5 04:28 Drug: Zofran (Ondansetron) 4 mg Route: IVP; Site: left antecubital; sm5 07:01 Follow up: Response: No adverse reaction sm5 07:12 Drug: morphine 4 mg Route: IVP; Infused Over: 4 mins; Site: left antecubital; vg1 07:18 Follow up: Response: RASS: Restless (+1) vg1 08:30 Follow up: Response: No adverse reaction; Pain is decreased; RASS: Alert and Calm (0) vg1 Medication: 07:20 VIS not applicable for this client. vg1 Outcome: 06:00 ER care complete, transfer ordered by MD. solorio 08:43 Transferred by ground EMS to [facility]. vg1 08:43 Condition: stable 08:43 Instructed on the need for transfer. 08:44 Patient left the ED. vg1 Signatures: Dispatcher [employer] EDMS Bobby Weiss MD MD cha Swanson, Donovan ds4 Shantal Wahl RN RN vg1 Nannette Martin Sarah, RN RN sm5 Michaela Garcia, RN RN vc1
--- NOTE | 2022-02-03 06:01 | EDPHYS ---
Physician Documentation [facility] Name: Juan Manuel Moya Age: 41 yrs Sex: Female : 1980 Arrival Date: 02/03/2022 Time: 00:36 Bed 16 Private MD: Bobby Gonzalez HPI: 02/03 05:55 This 41 yrs old Female presents to ER via Ambulatory with complaints of Flank lyndsey Pain, Urinary Retention. 05:55 The patient complains of pain in the left low back and left mid back. lyndsey RN LVN: 00:53 LMP N/A - Hysterectomy vc1 Historical: - Allergies: 00:50 No Known Allergies; vc1 - PMHx: 00:50 depressive disorder; vc1 - PSHx: 00:50 Appendectomy; Total abdominal hysterectomy; vc1 - Immunization history:: Adult Immunizations up to date, Client reports having NOT received the Covid vaccine. Flu vaccine is not up to date. Patient has never been vaccinated. - Social history:: Smoking status: Patient reports the use of cigarette tobacco products, 5 cigs daily. ROS: 05:55 Constitutional: Negative for fever, chills, and weight loss, Eyes: Negative for injury, lyndsey pain, redness, and discharge, ENT: Negative for injury, pain, and discharge, Neck: Negative for injury, pain, and swelling, Cardiovascular: Negative for chest pain, palpitations, and edema, Respiratory: Negative for shortness of breath, cough, wheezing, and pleuritic chest pain, Back: Negative for injury and pain, : Negative for injury, bleeding, discharge, and swelling, MS/Extremity: Negative for injury and deformity, Skin: Negative for injury, rash, and discoloration, Neuro: Negative for headache, weakness, numbness, tingling, and seizure, Psych: Negative for depression, anxiety, suicide ideation, homicidal ideation, and hallucinations, Allergy/Immunology: Negative for hives, rash, and allergies, Endocrine: Negative for neck swelling, polydipsia, polyuria, polyphagia, and marked weight changes, Hematologic/Lymphatic: Negative for swollen nodes, abnormal bleeding, and unusual bruising. 05:55 Respiratory: Positive for 05:55 Abdomen/GI: Positive for abdominal pain, nausea, vomiting, abdominal cramps, of the left lower quadrant. Exam: 05:55 Constitutional: This is a well developed, well nourished patient who is awake, alert, lyndsey and in no acute distress. Head/Face: Normocephalic, atraumatic. Eyes: Pupils equal round and reactive to light, extra-ocular motions intact. Lids and lashes normal. Conjunctiva and sclera are non-icteric and not injected. Cornea within normal limits. Periorbital areas with no swelling, redness, or edema. ENT: Nares patent. No nasal discharge, no septal abnormalities noted. Tympanic membranes are normal and external auditory canals are clear. Oropharynx with no redness, swelling, or masses, exudates, or evidence of obstruction, uvula midline. Mucous membranes moist. Neck: Trachea midline, no thyromegaly or masses palpated, and no cervical lymphadenopathy. Supple, full range of motion without nuchal rigidity, or vertebral point tenderness. No Meningismus. Chest/axilla: Normal chest wall appearance and motion. Nontender with no deformity. No lesions are appreciated. Cardiovascular: Regular rate and rhythm with a normal S1 and S2. No gallops, murmurs, or rubs. Normal PMI, no JVD. No pulse deficits. Respiratory: Lungs have equal breath sounds bilaterally, clear to auscultation and percussion. No rales, rhonchi or wheezes noted. No increased work of breathing, no retractions or nasal flaring. Back: No spinal tenderness. No costovertebral tenderness. Full range of motion. Female : Normal external genitalia. Skin: Warm, dry with normal turgor. Normal color with no rashes, no lesions, and no evidence of cellulitis. MS/ Extremity: Pulses equal, no cyanosis. Neurovascular intact. Full, normal range of motion. Neuro: Awake and alert, GCS 15, oriented to person, place, time, and situation. Cranial nerves II-XII grossly intact. Motor strength 5/5 in all extremities. Sensory grossly intact. Cerebellar exam normal. Normal gait. 05:55 Abdomen/GI: Inspection: abdomen appears normal, Bowel sounds: active, Palpation: moderate abdominal tenderness, in the left lower quadrant, Liver: no appreciated palpable abnormalities, Hernia: not appreciated. Vital Signs: 00:45 BP 160 / 105 RA Supine (auto/reg); Pulse 92 MON; Resp 22 S; Temp 97.3(O); Pulse Ox 99% ds4 on R/A; Weight 107.95 kg (R); Height 5 ft. 3 in. (160.02 cm) (R); Pain 10/10; 03:30 BP 138 / 90; Pulse 65; Resp 20; Pulse Ox 94% on R/A; vc1 04:20 BP 126 / 80; Pulse 65; Resp 21; Pulse Ox 94% on R/A; vc1 06:55 BP 120 / 86; Pulse 58; Resp 17; Pulse Ox 97% on R/A; sm5 07:00 BP 131 / 80; Pulse 60; Resp 16; Pulse Ox 97% on R/A; vg1 08:37 BP 138 / 81; Pulse 59; Resp 16; Pulse Ox 99% on R/A; vg1 00:45 Body Mass Index 42.16 (107.95 kg, 160.02 cm) ds4 MDM: 00:39 Patient medically screened. lyndsey 05:57 Differential diagnosis: nephrolithiasis, pyelonephritis, UTI, diverticulitis, lyndsey pancreatitis, bowel obstruction, Cholelithiasis, diverticulitis, Dysmenorrhea, Endometriosis, gastritis, Irritable bowel syndrome, Mesenteric ischemia or infarction, non-specific abd pain, pancreatitis. Data reviewed: vital signs, nurses notes, lab test result(s), radiologic studies, CT scan, ultrasound. 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 02/03 00:52 Order name: CBC with Diff; Complete Time: 01:32 [facility] 02/03 00:52 Order name: CMP; Complete Time: 01:32 [facility] 02/03 00:52 Order name: Lipase; Complete Time: 01:32 [facility] 02/03 00:52 Order name: Urine Microscopic Only; Complete Time: 02:58 [facility] 02/03 01:45 Order name: Urine Dipstick-Ancillary; Complete Time: 01:53 [facility] 02/03 02:00 Order name: Urine Culture [facility] 02/03 00:52 Order name: CT Abd/Pelvis - IV Contrast Only [facility] 02/03 02:33 Order name: CREATININE WHOLE BLOOD; Complete Time: 02:58 [facility] 02/03 02:40 Order name: US Transvaginal Study (Probe) ds4 02/03 06:06 Order name: COVID-19 SARS RT PCR (Document "Date of Onset" if Symptomatic) bb 02/03 00:52 Order name: IV Saline Lock; Complete Time: 01:17 lyndsey 02/03 00:52 Order name: Labs collected and sent; Complete Time: :17 lyndsey 02/03 00:52 Order name: Urine Dipstick-Ancillary (obtain specimen); Complete Time: 01:44 lyndsey Administered Medications: 01:16 Drug: morphine 4 mg Route: IVP; Infused Over: 4 mins; Site: left antecubital; vc1 02:30 Follow up: Response: No adverse reaction; Pain is unchanged, physician notified vc1 01:17 Drug: NS 0.9% 1000 ml Route: IV; Rate: 1 bolus; Site: left antecubital; vc1 01:17 Drug: Zofran (Ondansetron) 4 mg Route: IVP; Site: left antecubital; vc1 04:19 Follow up: Response: No adverse reaction; Marked relief of symptoms; Nausea is decreasedvc1 01:59 Drug: levofloxacin 750 mg Volume: 150 ml; Route: IVPB; Infused Over: 90 mins; Site: vc1 right antecubital; 01:59 Drug: Flagyl (metroNIDAZOLE) 500 mg Volume: 100 ml; Route: IVPB; Rate: 200 ml/hr; vc1 Infused Over: 30 mins; Site: right antecubital; 02:47 Drug: Dilaudid (HYDROmorphone) 1 mg Route: IVP; Site: left antecubital; vc1 04:00 Follow up: Response: No adverse reaction; Marked relief of symptoms; Pain is decreased; vc1 RASS: Alert and Calm (0) 03:00 Drug: Rocephin (cefTRIAXone) 2 grams Route: IV; Rate: per protocol; Site: left vc1 antecubital; 04:27 Drug: morphine 4 mg Route: IVP; Infused Over: 4 mins; Site: left antecubital; sm5 07:01 Follow up: Response: No adverse reaction sm5 04:28 Drug: Zofran (Ondansetron) 4 mg Route: IVP; Site: left antecubital; sm5 07:01 Follow up: Response: No adverse reaction sm5 07:12 Drug: morphine 4 mg Route: IVP; Infused Over: 4 mins; Site: left antecubital; vg1 07:18 Follow up: Response: RASS: Restless (+1) vg1 08:30 Follow up: Response: No adverse reaction; Pain is decreased; RASS: Alert and Calm (0) vg1 Disposition Summary: 02/03/22 06:00 Transfer Ordered Transfer Location: [facility] Reason: Higher level of care lyndsey Condition: Fair lyndsey Problem: new lyndsey Symptoms: have improved lyndsey Accepting Physician: TO [facility](02/03/22 08:44) vg1 Diagnosis - Abdominal tenderness lyndsey - Elevated white blood cell count lyndsey - Other and unspecified ovarian cysts - 4.2 cm left ovarian cyst lyndsey - Torsion of ovary and ovarian pedicle, unspecified side - left lyndsey Forms: - Medication Reconciliation Form lyndsey - SBAR form lyndsey Signatures: Dispatcher [employer] EDBobby Esteves MD MD cha Attema, Lee, DEVELOPMENT CHEMIST-C DEVELOPMENT CHEMIST-Cla1 Shantal Wahl RN RN vg1 Keara Nance RN RN sm5 Michaela Garcia RN RN vc1 Corrections: (The following items were deleted from the chart) 06:33 [facility] 08:44 06:33 TO [facility] vg1
[2022-02-03 09:04] VITALS: BP 138/81; O2SAT 99
[2022-02-03 09:08] VITALS: TEMP 97.3
--- NOTE | 2022-02-03 10:55 | RAD REPORT ---
EXAM DESCRIPTION: US - Transvaginal Study Probe - 02/03/2022 4:20 am ADDENDUM #1 The results of this study were reviewed and acknowledged by Dr. Weiss on 02/03/2022 at 6:31 AM. Electronically signed by: Yumiko Aden DO 02/03/2022 7:39 AM CDT End of Addendum EXAM DESCRIPTION: US Pelvis Complete CLINICAL HISTORY: 41 years Female R/O Torsion, LMP: Not provided TECHNIQUE: Ultrasound imaging of the pelvis was performed transabdominally and endovaginally on 2021 at 3: 40 AM. COMPARISON: CT abdomen and pelvis performed on 02/03/2022 FINDINGS: Uterus and cervix are surgically absent as per history. The right ovary is not identified on this examination likely due to adjacent bowel gas. The left ovary measures approximately 3.7 x 4.3 x 3.7 cm. The left ovary contains normal follicles. There is a simple appearing cyst adjacent to the left ovary measuring approximately 2.9 x 3.2 x 3. 1 cm. Doppler imaging demonstrates minimal spectral Doppler vascularity within the left ovary. No sig nificant color Doppler flow is identified. There is no free fluid in the pelvis. IMPRESSION: 1. Surgical absence of the uterus and cervix as per history. 2. Sonographic findings suspicious for left ovarian torsion. There is an approximately 3.2 cm left pa raovarian cyst with minimal spectral Doppler vascularity identified within the left ovary. 3. Nonvisualization of the right ovary at this time likely due to adjacent bowel gas. Electronically signed by: Yumiko Aden DO 02/03/2022 6:02 AM CDT Due to temporary technical issues with the PACS/Fluency reporting system, reports are being signed by the in house radiologists without review as a courtesy to insure prompt reporting. The interpreting radiologist is fully responsible for the content of the report.
--- NOTE | 2022-02-03 12:15 | RAD REPORT ---
EXAM DESCRIPTION: CT - Abdomen Pelvis W Contrast - 02/03/2022 6:31 am CLINICAL HISTORY: 41 years, Female, LLQ abdominal pain COMPARISON: 09/10/2019 TECHNIQUE: Contrast-enhanced images of the abdomen and pelvis were performed utilizing 5 mm slice th ickness at 5 mm interval reconstruction from the lung bases to the ischial tuberosities after the adm inistration of IV contrast. In addition multiplanar reformats in the coronal and sagittal plane were obtained and reviewed. This exam was performed according to our departmental dose-optimization protocol, which includes auto mated exposure control, adjustment of the mA and/or kV according to patient size and/or use of iterat ivory reconstruction technique. FINDINGS: The lung bases demonstrate to be clear. The liver demonstrates slight decreased attenuation suggesting mild fatty infiltration. Otherwise the liver, gallbladder, pancreas, spleen and adrenal glands demonstrate to be unremarkable, no focal les ions are noted. The kidneys demonstrate normal uptake of contrast media. No evidence for nephrolithiasis and/or hydro nephrosis. There is a lower pole exophytic simple right renal cyst measuring 2.1 cm on image 45. There is anterior supraumbilical hernia containing omentum on CT series #401 image 41/58. There is status post lower anterior abdominal wall mesh hernia repair. Grossly the unopacified stomach, small bowel and large bowel demonstrate to be within normal limits. There is no evidence for bowel dilatation/or free air. There is status post sigmoid colon anastomos is. The urinary bladder demonstrate to be unremarkable. The uterus is absent. There is a left-sided adn exal complex cystic lesion measuring 4.2 x 2.9 cm with Hounsfield units of 34, previously measured 3. 5 cm, adjacent midline cystic lesion measuring 2.5 x 2.1 cm on image 73. The aorta demonstrate to b e within normal limits. There is no retroperitoneal lymphadenopathy. There is no evidence for ascit es/or significant abnormal fluid collections. The rest of the soft tissue and bony structures are wit hin normal limits. IMPRESSION: Status post sigmoid colon anastomosis. Anterior supraumbilical hernia containing omentum. Status post hysterectomy. Multiple ovarian cysts. Most severe: 4.2 cm left adnexal indeterminate cyst. Recommend prompt follow- up with pelvic US. Mild fatty infiltration of the liver. Electronically signed by: Zev Barber MD 02/03/2022 2:21 AM CDT Due to temporary technical issues with the PACS/Fluency reporting system, reports are being signed by the in house radiologists without review as a courtesy to insure prompt reporting. The interpreting radiologist is fully responsible for the content of the report.
== END 2022-02-03 08:44 | disposition short-term general hospital (02) ==
LOC: ER 00:32
DX: N83.292 Other ovarian cyst, left side (principal); N83.512 Torsion of left ovary and ovarian pedicle; D72.829 Elevated white blood cell count, unspecified; Z20.822 Contact with and (suspected) exposure to COVID-19; Z72.0 Tobacco use
CPT/HCPCS: 87088; 85025; 87086; 36415; 82565; 83690; 80053; 74177; 76830; U0003; Q9967; J1170; J7030; J3490; J2405 ×2; 81003; 81015; 99285

== ENCOUNTER 2023-05-31 00:29 | Emergency (ER) | payer BC, OTHER ==
[2023-05-31 01:16] LABS: Absolute Lymphocytes (CBC) 3.3 K/uL (0.7-4.9); Hematocrit 41.1 % (36.0-45.0); MCV 88.7 fL (80-100); MPV 7.6 fL (7.6-11.3); Platelets 329 thou/uL (152-406); RBC Red Blood Cell Count 4.64 M/uL (3.86-4.86)
[2023-05-31 01:24] LABS: Urine Bacteria <20 /HPF (<20); Urine Bilirubin 1+ (Negative); Urine Blood 1+ (Negative); Urine Clarity Extremely Turbid (Clear); Urine Color Dark-Brown (Yellow); Urine Crystals Unidentified Few /HPF (None Seen); Urine Glucose NEGATIVE (Negative); Urine Mucus Slight /HPF (None Seen); Urine Protein 1+ (Negative); Urine RBC 21-50 /HPF (None Seen); Urine Urobilinogen 3+ (Normal); Urine WBC Clump Rare /HPF (None Seen); Urine pH 5.5 (5.0-7.0)
[2023-05-31 01:35] LABS: Potassium 3.5 mEq/L (3.5-5.1)
--- NOTE | 2023-05-31 02:06 | EDPHYS ---
Physician Documentation [facility] Name: Juan Manuel Moya Age: 42 yrs Sex: Female : 1980 Arrival Date: 05/31/2023 Time: 00:29 Bed 13 Private MD: THEE Physician Bobby Weiss HPI: 05/31 01:39 This 42 yrs old Female presents to ER via Ambulatory with complaints of Urinary kb Problem, Pt states possible uti. 01:51 Patient is a 42-year-old female who presents for hematuria that started yesterday. kb States it stopped yesterday she started taking AZO's and today she has had orange urine so she came to get it out checked out. Also reports right flank pain. 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, Not vc1 Historical: - Allergies: 00:45 No Known Allergies; vc1 - Home Meds: 01:38 gabapentin 400 mg oral capsule 1 cap 3 times per day [Active]; sertraline 100 mg oral jw7 tablet 1 tab [Active]; tramadol 50 mg oral tablet 1 tab 2x/day prn [Active]; methocarbamol 750 mg oral tablet 1 tab 3 times per day [Active]; losartan-hydrochlorothiazide 50-12.5 mg oral tablet [Active]; Vitamin D 1.25 mg Oral [Active]; Azo-Standard Oral [Active]; - PMHx: 00:45 depressive disorder; vc1 - PSHx: 00:45 Appendectomy; Total abdominal hysterectomy; Colostomy and reversal (depressive vc1 disorder); - Immunization history:: Client reports having NOT received the Covid vaccine. - Social history:: Smoking status: Patient reports the use of cigarette tobacco products, smokes one-half pack cigarettes per day. ROS: 01:50 Constitutional: Negative for fever, chills, and weight loss, kb 01:50 : Positive for flank pain, hematuria, 01:50 All other systems are negative, Exam: 01:50 Constitutional: This is a well developed, well nourished patient who is awake, alert, kb and in no acute distress. Head/Face: Normocephalic, atraumatic. ENT: Moist Mucous membranes Cardiovascular: Regular rate Respiratory: Respirations even and unlabored. No increased work of breathing. Talking in full sentences Abdomen/GI: Soft, non-tender. No distention Skin: Warm, dry with normal turgor. Normal color. MS/ Extremity: Pulses equal, no cyanosis. Neurovascular intact. Full, normal range of motion. Neuro: Awake and alert, GCS 15, oriented to person, place, time, and situation. Moves all extremities. Normal gait. 01:50 Back: CVA tenderness, that is mild, is noted on the right, Vital Signs: 00:37 BP 159 / 111; Pulse 86; Resp 18; Temp 98.3; Pulse Ox 99% ; Weight 113.4 kg; Height 5 vc1 ft. 3 in. ; Pain 4/10; 01:00 BP 140 / 94; Pulse 75; Resp 17 S; Pulse Ox 99% on R/A; jw7 02:00 BP 138 / 79; Pulse 69; Resp 16 S; Pulse Ox 98% on R/A; jw7 02:47 BP 136 / 90; Pulse 71; Resp 16 S; Pulse Ox 97% on R/A; jw7 00:37 Body Mass Index 44.29 (113.40 kg, 160.02 cm) vc1 00:37 Pain Scale: Adult vc1 MDM: 00:35 Patient medically screened. kb 01:50 Differential diagnosis: kidney stone, urinary tract infection, pyelonephritis. Data kb reviewed: vital signs, nurses notes. 02:05 Counseling: I had a detailed discussion with the patient and/or guardian regarding the kb historical points, exam findings, and any diagnostic results supporting the discharge/admit diagnosis, lab results, radiology results, the need for outpatient follow up, a family practitioner, to return to the emergency department if symptoms worsen or persist or if there are any questions or concerns that arise at home. 05/31 00:43 Order name: Basic Metabolic Panel; Complete Time: 01:35 [facility] 05/31 00:43 Order name: CBC with Automated Diff; Complete Time: 01:23 [facility] 05/31 01:14 Order name: Urinalysis w/ reflexes; Complete Time: 01:29 [facility] 05/31 01:14 Order name: Test, Urine; Complete Time: 01:23 [facility] 05/31 01:27 Order name: Urine Culture [facility] 05/31 00:43 Order name: Stone Protocol [facility] 05/31 00:42 Order name: IV Start; Complete Time: 01:11 kb Administered Medications: 02:12 Drug: Rocephin IV 1 grams IV at calculated rate once; Given slow IV push per pharmacy jw7 instructions Route: IV; Rate: calculated rate; Site: right antecubital; 02:45 Follow up: Response: No adverse reaction; IV Status: Completed infusion; IV Intake: jw7 100ml Disposition Summary: 05/31/23 02:05 Discharge Ordered Notes: Location: Home kb Condition: Stable kb Diagnosis - UTI/ Urinary tract infection, site not specified kb Followup: kb - With: Emergency Department - When: As needed - Reason: Worsening of condition Followup: kb - With: Private Physician - When: 2 - 3 days - Reason: Recheck today's complaints, Continuance of care, Re-evaluation by your physician Discharge Instructions: - Discharge Summary Sheet kb - Urinary Tract Infection, Adult, [id number]-[id number] kb Forms: - Medication Reconciliation Form kb - Thank You Letter kb - Antibiotic Education kb - Prescription Opioid Use kb - Patient Portal Instructions kb - Leadership Thank You Letter kb Prescriptions: - Augmentin 875-125 mg Oral Tablet - take 1 tablet ORAL route every 12 hours for 10 days; 20 tablet; Refills: 0, kb Product Selection Permitted Signatures: Dispatcher [employer] EDMS Doris Goss, SUBSTITUTE SCHOOL NURSE-C [employer] NURSE-Michealb Michaela Garcia, RN RN vc1 Felicia Kearns, RN RN jw7 Corrections: (The following items were deleted from the chart) 02:18 01:46 Test, Urine+UC.LAB.BRZ ordered. EDMS EDMS 02:18 01:46 Urinalysis+U.LAB.BRZ ordered. EDMS EDMS
--- NOTE | 2023-05-31 02:06 | ER ---
Nurse's Notes [facility] Name: Juan Manuel Moya Age: 42 yrs Sex: Female : 1980 Arrival Date: 05/31/2023 Time: 00:29 Bed 13 Private MD: Diagnosis: UTI/ Urinary tract infection, site not specified Presentation: 05/31 00:37 Chief complaint: Patient states: Saturday my pee hole had been itching so I thought I vc1 was getting a yeast infection, I wiped and there was bright red blood. I've been drinking lots of water and cranberry juice and I started Azo tonight and when I wiped it was an orange red color. I have a cyst on both ovaries and one on my right kidney so I just want to make sure every thing is okay. Coronavirus screen: Vaccine status: Patient reports being unvaccinated. Client denies travel out of the [place] in the last 14 days. At this time, the client does not indicate any symptoms associated with coronavirus-19. Ebola Screen: Patient negative for fever greater than or equal to 101.5 degrees Fahrenheit, and additional compatible Ebola Virus Disease symptoms Patient denies exposure to infectious person. Patient denies travel to an Ebola-affected area in the 21 days before illness onset. No symptoms or risks identified at this time. Initial Sepsis Screen: Does the patient meet any 2 criteria? No. Patient's initial sepsis screen is negative. Does the patient have a suspected source of infection? Yes: Dysuria/Frequency/Urgency/UTI. Risk Assessment: Do you want to hurt yourself or someone else? Patient reports no desire to harm self or others. Onset of symptoms was May 28, 2023. 00:37 Method Of Arrival: Ambulatory vc1 00:37 Acuity: CHELSEY 3 vc1 Triage Assessment: 00:47 General: Appears in no apparent distress. uncomfortable, Behavior is anxious. Pain: vc1 Complains of pain in right low back Pain does not radiate. EENT: No deficits noted. No signs and/or symptoms were reported regarding the EENT system. Neuro: Level of Consciousness is awake, alert, obeys commands, Oriented to person, place, time, situation, Appropriate for age. Cardiovascular: No deficits noted. Respiratory: Airway is patent Respiratory effort is even, unlabored, Respiratory pattern is regular, symmetrical. GI: No deficits noted. : Reports pain lower quadrant(s) vaginal itching. Derm: No deficits noted. No signs and/or symptoms reported regarding the dermatologic system. Musculoskeletal: No deficits noted. No signs and/or symptoms reported regarding the musculoskeletal system. POUNCER: 00:47 LMP N/A - Hysterectomy, Not vc1 Historical: - Allergies: 00:45 No Known Allergies; vc1 - Home Meds: 01:38 gabapentin 400 mg oral capsule 1 cap 3 times per day [Active]; sertraline 100 mg oral jw7 tablet 1 tab [Active]; tramadol 50 mg oral tablet 1 tab 2x/day prn [Active]; methocarbamol 750 mg oral tablet 1 tab 3 times per day [Active]; losartan-hydrochlorothiazide 50-12.5 mg oral tablet [Active]; Vitamin D 1.25 mg Oral [Active]; Azo-Standard Oral [Active]; - PMHx: 00:45 depressive disorder; vc1 - PSHx: 00:45 Appendectomy; Total abdominal hysterectomy; Colostomy and reversal (depressive vc1 disorder); - Immunization history:: Client reports having NOT received the Covid vaccine. - Social history:: Smoking status: Patient reports the use of cigarette tobacco products, smokes one-half pack cigarettes per day. Screenin:47 [facility] ED Fall Risk Assessment (Adult) History of falling in the last 3 months, vc1 including since admission No falls in past 3 months (0 pts) Confusion or Disorientation No (0 pts) Intoxicated or Sedated No (0 pts) Impaired Gait No (0 pts) Mobility Assist Device Used No (0 pt) Altered Elimination No (0 pt) Score/Fall Risk Level 0 - 2 = Low Risk Oriented to surroundings, Maintained a safe environment, Educated pt \T\ family on fall prevention, incl call for assistance when getting out of bed. Abuse screen: Denies threats or abuse. Nutritional screening: No deficits noted. Tuberculosis screening: No symptoms or risk factors identified. Assessment: 01:00 General: see triage assessment . jw7 Vital Signs: 00:37 BP 159 / 111; Pulse 86; Resp 18; Temp 98.3; Pulse Ox 99% ; Weight 113.4 kg; Height 5 vc1 ft. 3 in. ; Pain 4/10; 01:00 BP 140 / 94; Pulse 75; Resp 17 S; Pulse Ox 99% on R/A; jw7 02:00 BP 138 / 79; Pulse 69; Resp 16 S; Pulse Ox 98% on R/A; jw7 02:47 BP 136 / 90; Pulse 71; Resp 16 S; Pulse Ox 97% on R/A; jw7 00:37 Body Mass Index 44.29 (113.40 kg, 160.02 cm) vc1 00:37 Pain Scale: Adult vc1 ED Course: 00:34 Patient arrived in ED. gm2 00:35 Doris Goss, RADHA is PHCP. kb 00:35 Bobby Weiss MD is Attending Physician. kb 00:45 Triage completed. vc1 00:47 Arm band placed on right wrist. vc1 00:50 Roshan Adame, AMERICA is Primary Nurse. rv 01:10 Felicia Kearns RN is Primary Nurse. jw7 01:10 Patient has correct armband on for positive identification. Bed in low position. Call critical access hospital light in reach. 01:11 Initial lab(s) drawn, by ca, sent to lab. Urine collected: clean catch specimen, blood jw7 tinged. Inserted saline lock: 20 gauge in right antecubital area, using aseptic technique. Blood collected. 01:11 Basic Metabolic Panel Sent. jw7 01:11 CBC with Automated Diff Sent. jw7 01:32 Stone Protocol In Process Unspecified. EDMS 02:47 No provider procedures requiring assistance completed. IV discontinued, intact, jw7 bleeding controlled, No redness/swelling at site. Pressure dressing applied. 02:48 Provided Education on: discharge instructions and medication usage. jw7 Administered Medications: 02:12 Drug: Rocephin IV 1 grams IV at calculated rate once; Given slow IV push per pharmacy jw7 instructions Route: IV; Rate: calculated rate; Site: right antecubital; 02:45 Follow up: Response: No adverse reaction; IV Status: Completed infusion; IV Intake: jw7 100ml Medication: 00:49 VIS not applicable for this client. vc1 Intake: 02:45 IV: 100ml; Total: 100ml. jw7 Outcome: 02:05 Discharge ordered by . kb 02:47 Discharged to home ambulatory, jw7 02:47 Condition: stable 02:47 Discharge instructions given to patient, Instructed on discharge instructions, follow up and referral plans. medication usage, Demonstrated understanding of instructions, follow-up care, medications, Prescriptions given X 1, 03:02 Patient left the ED. jw7 Signatures: Dispatcher [employer] EDMS Doris Goss, LAKESHIA-Martinez [employer]HO[employer] HAND-Roshan Dolan, RN RN rv Michaela Garcia RN RN vc1 Felicia Kearns RN RN jw7 Chiqui Null 2 Corrections: (The following items were deleted from the chart) 01:12 01:11 General: see triage assessment . jw7 jw7 01:26 00:37 Chief complaint: vc1 jw7
[2023-05-31] MEDS ORDERED: CEFTRIAXONE 1000 MG/VIAL ONE (02:22)
[2023-05-31] MEDS ORDERED: NA CHLORIDE 0.9% 100 ML ONE (02:23)
[2023-05-31 03:20] VITALS: TEMP 98.3
[2023-05-31 03:28] VITALS: BP 136/90; O2SAT 97
--- NOTE | 2023-05-31 22:13 | RAD REPORT ---
EXAM DESCRIPTION: CT - Stone Protocol - 05/31/2023 6:31 am CLINICAL HISTORY: Flank pain, hematuria COMPARISON: 02/03/2022 TECHNIQUE: CT of the abdomen and pelvis without IV contrast. Evaluation of the solid organs and vasc ulature is suboptimal due to lack of IV contrast. This exam was performed according to our department al dose-optimization program, which includes automated exposure control, adjustment of the mA and/or kV according to patient size and/or use of iterative reconstruction technique. FINDINGS: Lung Bases: The visualized lung bases are clear. Abdomen: Liver: The liver has normal contour and density. No obvious mass within the limitations of noncontr ast technique. Gallbladder: Gallbladder is distended. Probable calcified gallstone at the gallbladder neck. Appearan ce is similar to prior. Spleen, Pancreas, and Adrenal Glands: The spleen, pancreas, and adrenal glands are unremarkable. Kidneys: The kidneys have normal size without suspicious mass within the limitations of noncontrast t echnique. No obstructing ureteral calculi. No hydronephrosis. Vasculature: The aorta and IVC have normal caliber and position. Stomach: The stomach and duodenum have normal course. Other: No free intraperitoneal air. No free fluid or lymphadenopathy. Postsurgical changes relate d to prior ventral hernia repair. There is a fat-containing supraumbilical ventral hernia. Appearance is stable. Pelvis: Bladder: Underdistended. Bowel: No dilated loops of large or small bowel. No surgical changes are stable. Appendix: Not visualized. Pelvis: Status post hysterectomy. No suspicious mass. Bones: No destructive bone lesions identified. IMPRESSION: 1. No obstructing urinary tract calculi or hydronephrosis. 2. Distended gallbladder with probable stone at the gallbladder neck. Appearance is similar to prior. 3. Additional chronic findings as above. Electronically signed by: Olga Enrique MD 05/31/2023 1:56 AM CDT Due to temporary technical issues with the PACS/Fluency reporting system, reports are being signed by the in house radiologists without review as a courtesy to insure prompt reporting. The interpreting radiologist is fully responsible for the content of the report.
== END 2023-05-31 03:02 | disposition home or self-care (01) ==
LOC: ER 00:29
DX: N39.0 Urinary tract infection, site not specified (principal); F17.210 Nicotine dependence, cigarettes, uncomplicated
CPT/HCPCS: 96365; 87088; 85025; 81001; 87086; 80048; 36415; 81025; 76377; 74176; 99284; J0696

== ENCOUNTER 2024-04-06 11:15 | Emergency (ER) | payer BC, OTHER ==
[2024-04-06] MEDS ORDERED: NA CHLORIDE 0.9% 1,000 ML ONE (11:45)
[2024-04-06] MEDS ORDERED: ONDANSETRON 4 MG/2 ML VIAL ONE (11:45)
[2024-04-06] MEDS ORDERED: MORPHINE 4 MG/ML SYR ONE (11:45)
[2024-04-06 12:14] LABS: Absolute Basophils 0.1 K/uL (0-0.5); Absolute Eosinophils 0.1 K/uL (0-0.5); Absolute Lymphocytes (CBC) 2.6 K/uL (0.7-4.9); Absolute Monocytes 0.4 K/uL (0.1-1.3); Absolute Neutrophil 7.4 K/uL (1.8-8.0); Basophils % 0.7 % (0-1.3); Eosinophils % 1.4 % (0-4.4); Hematocrit 39.4 % (36.0-45.0); Hemoglobin 13.2 g/dL (12.0-15.0); Lymphocytes % 24.4 % (15.3-44.8); MCH 29.9 pg (27.0-35.0); MCHC 33.6 g/dL (32.0-36.0); MCV 89.1 fL (80-100); Monocytes % 3.6 % (3.3-12.3); Neutrophils % 69.9 % (41.7-73.7); Platelets 256 thou/uL (152-406); RBC Red Blood Cell Count 4.42 M/uL (3.86-4.86); Red Cell Distribution Width 16.4 % (12.1-15.2)
[2024-04-06 12:21] LABS: Specific Gravity 1.025 (1.005-1.030); Urine Bacteria <20 /HPF (<20); Urine Bilirubin NEGATIVE (Negative); Urine Blood 3+ (Negative); Urine Clarity Extremely Turbid (Clear); Urine Color Yellow (Yellow); Urine Culture Reflex Order NOT NEEDED; Urine Glucose NEGATIVE (Negative); Urine Ketones NEGATIVE (Negative); Urine Microscopic Reflex YN ORDER UMIC; Urine Mucus Slight /HPF (None Seen); Urine Nitrite NEGATIVE (Negative); Urine Protein 1+ (Negative); Urine RBC <5 /HPF (None Seen); Urine Urobilinogen Normal (Normal); Urine WBC <5 /HPF (<5); Urine pH 5.5 (5.0-7.0)
[2024-04-06 12:28] LABS: Albumin 3.1 g/dL (3.4-5.0); Albumin/Globulin Ratio 0.8 (1.1-1.8); Anion Gap 8.4 mEq/L (5.0-15.0); Bilirubin Total 0.6 mg/dL (0.2-1.0); Globulin 4.1 g/dL (2.3-3.5); Potassium 3.4 mEq/L (3.5-5.1); Protein, Total 7.2 g/dL (6.4-8.2)
--- NOTE | 2024-04-06 12:54 | RAD REPORT ---
EXAM DESCRIPTION: CT - Abdomen Pelvis W Contrast - 04/06/2024 12:36 pm CLINICAL HISTORY: Abdominal pain COMPARISON: 2021 and 1022 TECHNIQUE: Computed axial tomography of the abdomen pelvis was obtained. 100 cc Isovue-300 was admin istered intravenously. Oral contrast was not requested which limits evaluation of bowel and appendix All CT scans are performed using dose optimization technique as appropriate and may include automated exposure control or mA/KV adjustment according to patient size. FINDINGS: The liver, spleen, pancreas, and adrenals appear unremarkable 2.4 centimeter right renal cyst. Additional smaller left renal cysts Gallbladder distention Sigmoidectomy. No evidence of diverticulitis. 6 centimeter complex cystic mass left adnexa without significant change 2021. Hysterectomy Ventral hernia repair. Several residual ventral hernias. Largest midline mid abdomen with a neck of 2 .6 centimeters. Hernia sac 7.2 centimeters Smaller ventral hernia inferior to this contains a of nondilated small bowel IMPRESSION: Gallbladder distention Ventral hernias 6 centimeter complex cystic mass left adnexal without significant change from 2021 could represent a benign complex ovarian cyst or slow growing ovarian cystadenoma
--- NOTE | 2024-04-06 13:59 | RAD REPORT ---
EXAM DESCRIPTION: US - Abdomen Exam Limited - 04/06/2024 1:46 pm CLINICAL HISTORY: Abdominal pain. COMPARISON: April 06, 2024 CT FINDINGS: Gallbladder is distended. It contains several stones within the neck and a small amount of sludge. Gallbladder wall not thickened The biliary tree is normal caliber. IMPRESSION: Cholelithiasis with gallbladder distention
--- NOTE | 2024-04-06 14:39 | ER ---
Nurse's Notes [facility] Name: Juan Manuel Moya Age: 43 yrs Sex: Female : 1980 Arrival Date: 04/06/2024 Time: 11:15 Bed 6 Private MD: Diagnosis: Other cholelithiasis without obstruction Presentation: 04/06 11:26 Chief complaint: Patient states: Abdominal pain X3 days. Pt reports that she has had a cm10 cough and after she coughed started having abdominal pain. PT reports having hernias and describes the pain as a twisting pain. Pt reports nausea. Coronavirus screen: Client denies travel out of the [place] in the last 14 days. At this time, the client does not indicate any symptoms associated with coronavirus-19. Ebola Screen: Patient denies travel to an Ebola-affected area in the 21 days before illness onset. No symptoms or risks identified at this time. Initial Sepsis Screen: Does the patient meet any 2 criteria? No. Patient's initial sepsis screen is negative. Does the patient have a suspected source of infection? No. Patient's initial sepsis screen is negative. Risk Assessment: Do you want to hurt yourself or someone else? Patient reports no desire to harm self or others. Onset of symptoms was April 06, 2024. 11:26 Method Of Arrival: Ambulatory cm10 11:26 Acuity: CHELSEY 3 cm10 Triage Assessment: 11:29 General: Appears in no apparent distress. uncomfortable, Behavior is calm, cooperative. cm10 Neuro: No deficits noted. Level of Consciousness is awake, alert, obeys commands, Oriented to person, place, time, situation, Appropriate for age. Historical: - Allergies: 11:28 No Known Allergies; cm10 - PMHx: 11:28 depressive disorder; Hernia; Diverticulitis; Hypertensive disorder; cm10 - PSHx: 11:28 Appendectomy; Colostomy and reversal (si); Total abdominal hysterectomy; Colectomy; cm10 - Immunization history:: Adult Immunizations up to date. - Infectious Disease History:: Denies. - Social history:: Smoking status: Patient reports the use of cigarette tobacco products, smokes one-half pack cigarettes per day. - Family history:: not pertinent. Screenin:30 [facility] ED Fall Risk Assessment (Adult) History of falling in the last 3 months, rs5 including since admission No falls in past 3 months (0 pts) Confusion or Disorientation No (0 pts) Intoxicated or Sedated No (0 pts) Impaired Gait No (0 pts) Mobility Assist Device Used No (0 pt) Altered Elimination No (0 pt) Score/Fall Risk Level 0 - 2 = Low Risk Oriented to surroundings, Maintained a safe environment. Abuse screen: Denies threats or abuse. Nutritional screening: No deficits noted. Tuberculosis screening: No symptoms or risk factors identified. Assessment: 11:30 General: Appears in no apparent distress. uncomfortable, Behavior is calm, cooperative. rs5 11:30 Pain: Complains of pain in abdomen Pain currently is 9 out of 10 on a pain scale. rs5 Quality of pain is described as aching, Is continuous. Neuro: Level of Consciousness is awake, alert, obeys commands, Oriented to person, place, time, situation. Cardiovascular: Patient's skin is warm and dry. Respiratory: Reports cough that is Airway is patent Respiratory effort is even, unlabored, Respiratory pattern is regular, symmetrical. GI: Abdomen is round non-distended, Bowel sounds present X 4 quads. Abd is soft and non tender X 4 quads. Reports nausea. : No signs and/or symptoms were reported regarding the genitourinary system. EENT: No signs and/or symptoms were reported regarding the EENT system. Derm: Skin is intact, Skin is pink, warm \T\ dry. Musculoskeletal: Range of motion: intact in all extremities. 12:39 Reassessment: Patient and/or family updated on plan of care and expected duration. Pain rs5 level reassessed. Patient is alert, oriented x 3, equal unlabored respirations, skin warm/dry/pink. Patient states feeling better. Patient states symptoms have improved. 13:45 Reassessment: No changes from previously documented assessment. rs5 14:30 Reassessment: Patient and/or family updated on plan of care and expected duration. Pain rs5 level reassessed. Patient is alert, oriented x 3, equal unlabored respirations, skin warm/dry/pink. Vital Signs: 11:26 BP 132 / 75; Pulse 84; Resp 16; Temp 97.3; Pulse Ox 96% on R/A; Weight 121.56 kg; cm10 Height 5 ft. 3 in. ; Pain 7/10; 13:48 BP 123 / 84; Pulse 79; Resp 17; Pulse Ox 97% on R/A; rs5 14:53 BP 127 / 79; Pulse 81; Resp 17; Pulse Ox 99% on R/A; rs5 11:26 Body Mass Index 47.47 (121.56 kg, 160.02 cm) cm10 11:26 Pain Scale: Adult cm10 ED Course: 11:17 Patient arrived in ED. im 11:23 Stas Rebollar MD is Attending Physician. rt 11:28 Triage completed. cm10 11:29 Arm band placed on Patient placed in an exam room, on a stretcher. cm10 11:30 Patient has correct armband on for positive identification. Placed in gown. Bed in low rs5 position. Call light in reach. Side rails up X2. 11:30 No provider procedures requiring assistance completed. rs5 11:30 Inserted saline lock: 20 gauge in right antecubital area, using aseptic technique. rs5 Blood collected. Flushed with 10 mL NS. 11:43 Ciro Bah, AMERICA is Primary Nurse. rs5 12:36 CT Abd/Pelvis - IV Contrast Only In Process Unspecified. EDMS 13:47 US Abdomen Limited In Process Unspecified. EDMS 14:38 Tonny Acharya MD is Referral Physician. rt 14:54 IV discontinued, intact, bleeding controlled, No redness/swelling at site. Pressure rs5 dressing applied. Administered Medications: 12:00 Drug: NS 0.9% IV 1000 ml IV at 1 bolus Per protocol; 1000 mL bolus Route: IV; Rate: 1 rs5 bolus; Site: right antecubital; 13:08 Follow up: Response: No adverse reaction; IV Status: Completed infusion rs5 12:00 Drug: Ondansetron IVP 4 mg IVP once; over 2 minutes Route: IVP; Site: right antecubital;rs5 12:20 Follow up: Response: No adverse reaction rs5 12:00 Drug: morphine IVP or IV 4 mg IVP once over 4 mins Route: IVP; Infused Over: 4 mins; rs5 Site: right antecubital; 12:20 Follow up: Response: No adverse reaction; Pain is decreased rs5 Medication: 13:48 VIS not applicable for this client. rs5 Outcome: 14:38 Discharge ordered by . rt 14:54 Discharged to home ambulatory, rs5 14:54 Condition: stable 14:54 Discharge instructions given to patient, family, Instructed on discharge instructions, follow up and referral plans. medication usage, Demonstrated understanding of instructions, follow-up care, medications, Prescriptions given X 2, 14:54 Patient left the ED. rs5 Signatures: Dispatcher [employer] EDMS Stas Rebollar MD MD rt Ciro Bah RN RN rs5 Ebony Ferris Clarissa, RN RN cm10
--- NOTE | 2024-04-06 14:39 | EDPHYS ---
Physician Documentation [facility] Name: Juan Manuel Moya Age: 43 yrs Sex: Female : 1980 Arrival Date: 04/06/2024 Time: 11:15 Bed 6 Private MD: ED Physician Stas Rebollar HPI: 04/06 15:22 This 43 yrs old Female presents to ER via Ambulatory with complaints of Abdominal Pain, rt Cough. 15:22 Patient with multiple abdominal surgeries presents to the ED with 3 days of right-sided rt abdominal pain that started after she was coughing. Patient is concerned that she has a bowel obstruction. She reports nausea, vomiting. Denies diarrhea. Denies other acute complaints at this time, symptoms are moderate in severity, no other aggravating or alleviating factors.. Historical: - Allergies: 11:28 No Known Allergies; cm10 - PMHx: :28 depressive disorder; Hernia; Diverticulitis; Hypertensive disorder; cm10 - PSHx: :28 Appendectomy; Colostomy and reversal (si); Total abdominal hysterectomy; Colectomy; cm10 - Immunization history:: Adult Immunizations up to date. - Infectious Disease History:: Denies. - Social history:: Smoking status: Patient reports the use of cigarette tobacco products, smokes one-half pack cigarettes per day. - Family history:: not pertinent. ROS: 15:22 Constitutional: Negative for fever, chills, and weight loss, Cardiovascular: Negative rt for chest pain, palpitations, and edema, Respiratory: Negative for shortness of breath, cough, wheezing, and pleuritic chest pain, MS/Extremity: Negative for injury and deformity, Skin: Negative for injury, rash, and discoloration, Neuro: Negative for headache, weakness, numbness, tingling, and seizure, 15:22 Abdomen/GI: Positive for abdominal pain, nausea and vomiting, Exam: 15:22 Constitutional: This is a well developed, well nourished patient who is awake, alert, rt and in no acute distress. Head/Face: Normocephalic, atraumatic. Chest/axilla: Normal chest wall appearance and motion. Nontender with no deformity. No lesions are appreciated. Cardiovascular: Regular rate and rhythm with a normal S1 and S2. No gallops, murmurs, or rubs. Normal PMI, no JVD. No pulse deficits. Respiratory: Lungs have equal breath sounds bilaterally, clear to auscultation and percussion. No rales, rhonchi or wheezes noted. No increased work of breathing, no retractions or nasal flaring. Skin: Warm, dry with normal turgor. Normal color with no rashes, no lesions, and no evidence of cellulitis. MS/ Extremity: Pulses equal, no cyanosis. Neurovascular intact. Full, normal range of motion. 15:22 Abdomen/GI: Tenderness to the right upper quadrant guarding, rebound, distention, Vital Signs: 11:26 BP 132 / 75; Pulse 84; Resp 16; Temp 97.3; Pulse Ox 96% on R/A; Weight 121.56 kg; cm10 Height 5 ft. 3 in. ; Pain 7/10; 13:48 BP 123 / 84; Pulse 79; Resp 17; Pulse Ox 97% on R/A; rs5 14:53 BP 127 / 79; Pulse 81; Resp 17; Pulse Ox 99% on R/A; rs5 11:26 Body Mass Index 47.47 (121.56 kg, 160.02 cm) cm10 11:26 Pain Scale: Adult cm10 MDM: 11:33 Patient medically screened. rt 15:22 Differential Diagnosis: Other Bowel obstruction, cholelithiasis, cholecystitis, rt pancreatitis. Data reviewed: vital signs, nurses notes, lab test result(s), radiologic studies. Consideration of Admission/Observation Escalation of care including admission/observation considered. Patient's workup reveals a cholelithiasis, there is no LFT elevation, other signs of cholecystitis. No indications for admission at this time. Patient instructed to follow-up with her general surgeon as an outpatient.. I considered the following discharge prescriptions or medication management in the emergency department Medications were administered in the Emergency Department. See MAR. Independent interpretation of the following test(s) in the Emergency Department CT Scan: My interpretation is No bowel obstruction seen on interpretation of CT scan images. Care significantly affected by the following chronic conditions: Hypertension. Counseling: I had a detailed discussion with the patient and/or guardian regarding the historical points, exam findings, and any diagnostic results supporting the discharge/admit diagnosis, lab results, radiology results, the need for outpatient follow up, to return to the emergency department if symptoms worsen or persist or if there are any questions or concerns that arise at home. Response to treatment: the patient's symptoms have markedly improved after treatment. 04/06 11:40 Order name: CBC with Diff; Complete Time: 12:36 rt 04/06 11:40 Order name: CMP; Complete Time: 12:36 rt 04/06 11:40 Order name: Lipase; Complete Time: 12:36 rt 04/06 11:40 Order name: Urinalysis w/ reflexes; Complete Time: 12:36 rt 04/06 11:40 Order name: Lactate w/ 2H reflex if indic.; Complete Time: 12:36 rt 04/06 11:40 Order name: CT Abd/Pelvis - IV Contrast Only; Complete Time: 12:55 rt 04/06 13:22 Order name: US Abdomen Limited; Complete Time: 14:06 rt 04/06 11:40 Order name: IV Saline Lock; Complete Time: 12:08 rt 04/06 11:40 Order name: Labs collected and sent; Complete Time: 12:08 rt Administered Medications: 12:00 Drug: NS 0.9% IV 1000 ml IV at 1 bolus Per protocol; 1000 mL bolus Route: IV; Rate: 1 rs5 bolus; Site: right antecubital; 13:08 Follow up: Response: No adverse reaction; IV Status: Completed infusion rs5 12:00 Drug: Ondansetron IVP 4 mg IVP once; over 2 minutes Route: IVP; Site: right antecubital;rs5 12:20 Follow up: Response: No adverse reaction rs5 12:00 Drug: morphine IVP or IV 4 mg IVP once over 4 mins Route: IVP; Infused Over: 4 mins; rs5 Site: right antecubital; 12:20 Follow up: Response: No adverse reaction; Pain is decreased rs5 Disposition Summary: 04/06/24 14:38 Discharge Ordered Notes: Location: Home rt Problem: new rt Symptoms: have improved rt Condition: Stable rt Diagnosis - Other cholelithiasis without obstruction rt Followup: rt - With: Tonny Acharya MD - When: 2 - 3 days - Reason: Discharge Instructions: - Discharge Summary Sheet rt - Cholelithiasis rt Forms: - Family Work Release rt - Medication Reconciliation Form rt - Antibiotic Education rt - Prescription Opioid Use rt - Patient Portal Instructions rt - Leadership Thank You Letter rt Prescriptions: - ondansetron 4 mg Oral Tablet,disintegrating - take 1 tablet ORAL route every 6 hours as needed for nausea; 18 tablet; rt Refills: 0, Product Selection Permitted - Tramadol 50 mg Oral tablet - take 1 tablet ORAL route every 8 hours as needed; 15 tablet; Refills: 0, rt Product Selection Permitted Signatures: Dispatcher [employer] EDMS Stas Rebollar MD MD rt Ciro Bah RN RN rs5 Gissell Perry RN RN cm10 Corrections: (The following items were deleted from the chart) 11:41 11:41 CBC+H.LAB.BRZ ordered. EDMS EDMS 11:41 11:41 COMPREHENSIVE METABOLIC PANEL+C.LAB.BRZ ordered. EDMS EDMS 11:41 11:41 LIPASE+C.LAB.BRZ ordered. EDMS EDMS 11:41 11:41 Urinalysis+U.LAB.BRZ ordered. EDMS EDMS 11:41 11:41 LACTATE+C.LAB.BRZ ordered. EDMS EDMS 11:41 11:41 Abdomen Pelvis W Con+CT.RAD.BRZ ordered. EDMS EDMS
[2024-04-06 15:03] VITALS: TEMP 97.3
[2024-04-06 15:07] VITALS: BP 127/79; O2SAT 99
== END 2024-04-06 14:54 | disposition home or self-care (01) ==
LOC: ER 11:15
DX: K80.80 Other cholelithiasis without obstruction (principal); F17.210 Nicotine dependence, cigarettes, uncomplicated
CPT/HCPCS: 96361; 85025; 81001; 36415; 83605; 83690; 80053; 74177; 76705; 96375; 96374; 99284; Q9967; J2405; J7030

== ENCOUNTER 2024-04-15 10:57 | Day surgery (SDC) | payer BC, OTHER ==
--- NOTE | 2024-04-14 16:54 | EKG ---
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
[2024-04-15] MEDS ORDERED: MIDAZOLAM HCL 2 MG/2 ML INJ ONE (12:43)
[2024-04-15] MEDS ORDERED: GLYCOPYRROLATE 0.2 MG/ML SYR ONE (12:43)
[2024-04-15] MEDS ORDERED: LIDOCAINE 1% MPF 5 ML VIAL ONE (12:43)
[2024-04-15] MEDS ORDERED: KETOROLAC 30 MG/ML INJ ONE (12:43)
[2024-04-15] MEDS ORDERED: propofoL 200 MG/20 ML VIAL IV ONE (12:43)
[2024-04-15] MEDS ORDERED: ONDANSETRON 4 MG/2 ML VIAL ONE (12:43)
[2024-04-15] MEDS ORDERED: FENTANYL CITR 100 MCG/2 ML ONE ×2 (12:43→14:42)
[2024-04-15] MEDS ORDERED: ROCURONIUM 50 MG/5 ML VIAL IV ONE (12:43)
[2024-04-15] MEDS ORDERED: LIDOCAINE HCL/EPINEPHRINE 20 ML MDV ONE (13:37)
[2024-04-15] MEDS ORDERED: Ringers Lactate 1,000 ML IV ONE ×2 (13:40→15:39)
[2024-04-15] MEDS ORDERED: CEFOXITIN SODIUM 2 GM/VIAL ONE (13:40)
[2024-04-15] MEDS ORDERED: SUGAMMADEX SODIUM 200 MG/2 ML VIAL IV ONE (15:14)
[2024-04-15] MEDS ORDERED: DEXMEDETOMIDINE HCL 200 MCG/2 ML VIAL ONE (15:14)
[2024-04-15] MEDS ORDERED: NS 0.9% VIAL 10 ML ONE (15:17)
[2024-04-15] MEDS ORDERED: MORPHINE 10 MG/ML VIAL ONE (15:32)
--- NOTE | 2024-04-15 15:42 | P.OP ---
Preoperative diagnosis: Cholecystitis with Cholelithiasis Postoperative diagnosis: Cholecystitis with Cholelithiasis Primary procedure: Laparoscopic Cholecystectomy with ICG Cholangiography Anesthesia: GETA + Local Estimated blood loss: <20cc Specimen: Gallbladder Findings: Purulent material in gallbladder, short cystic artery Complications: None Implants: Adilson Hemostatic Powder Transferred to: Recovery Room Condition: Good
[2024-04-15 17:29] VITALS: BP 119/76; TEMP 97.6
[2024-04-15 17:41] VITALS: O2SAT 96
--- NOTE | 2024-04-15 20:59 | OP ---
Date of Procedure: 04/15/2024 Surgeon: Tonny Acharya MD, Preoperative Diagnosis: Cholecystitis with cholelithiasis. Postoperative Diagnosis: Cholecystitis with cholelithiasis. Procedure Performed: Laparoscopic cholecystectomy with indocyanine green cholangiography. Anesthesia: General endotracheal plus local. Estimated Blood Loss: 20 cc. Specimen: Gallbladder. Findings: 1.Purulent material within the gallbladder. 2.Short cystic artery. 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 4.Stone impacted in the neck of the gallbladder. 5.Thick inflammatory rind over the gallbladder surface. 6.Partially intrahepatic gallbladder. Complications: None. Implants: Adilson hemostatic powder. Disposition: The patient transferred to recovery room in good condition. Procedure In Detail: After informed consent was obtained, patient was brought to the operating room, prepped and draped in the usual sterile fashion, after adequate anesthesia was achieved. I anesthet ized an area to the right of the umbilicus as the patient has history of ventral hernias not treated, ventral incisional hernias. As such, I entered the abdomen safely with a 5 mm trocar. Insufflation was obtained to 15 mmHg, at this time. There was no injury to vital structures upon entry into the abdomen. Three additional trocars were placed, 1 in the epigastrium, 1 in the right upper quadrant, 1 in the right mid abdomen. All of these were similarly anesthetized, sharply incised. 5 mm trocar was placed under direct visualization without incident or complication. At this time, the periumbili suzette trocar was upsized to a 12 mm under direct visualization without incident or complication. Remedios nt was positioned head up right-side up position. Ratcheted graspers were used to grasp the patient' s gallbladder and this was unsuccessful, and as such, I placed a decompression needle into the fundus of the gallbladder to decompress the gallbladder partially. At this point, I was able to grasp the gallbladder and position it at this point. Dissection continued down the Constantin pouch of the gallb ladder where significant inflammatory process was appreciated with thick fibrous adhesions as well as adhesions between the duodenum firmly adhered to the Constantin pouch of the gallbladder. This was di ssected using combination of blunt dissection and electrocautery. After this was freed up, I visuali zed the 2 structures identified as both cystic duct and cystic artery. At this point, I skeletonized these structures, performed indocyanine green cholangiography, which confirmed the position of the c ystic duct, common duct confluence far from the clip site. As such, I placed double titanium clips o n the proximal side and singly on the side of the cystic duct, at this point. Cystic artery was take n somewhat in a posterior position. As such, I could not place clips on at this point after I skelet onized, used the position and closed adherence and short length of the extrahepatic course of the rig ht hepatic artery and short direction of the cystic artery. At this point, I ligated this between sh ears. I placed titanium clip on the cystic artery on the proximal and distal side and cut this betwe en leona. However, the clip appeared to be slipping such as there was minimal arterial spurting of this area. A second clip was applied to the cystic duct stump, at this point, and with good hemostas is, at this point. The area was copiously irrigated. I suctioned out the area and directly lavaged the area using the lavage device. There was no bleeding, at this point. I then proceeded to remove the gallbladder off the hepatic fossa without incident or complication. The gallbladder was partiall y intrahepatic as was described. I then placed the gallbladder into an EndoCatch bag and sent it off for pathologic examination after being removed through the periumbilical trocar. At this point, the abdomen was copiously irrigated once again. No bleeding or hemostatic measures were required. Clip s were found to be in good anatomic position. Indocyanine green cholangiography confirmed no leakage about the end of the procedure. At this point, the patient was positioned back in a neutral positio n. Remaining effluent was suctioned out. The hepatic fossa was inspected. There was no bleeding fr om any clips. No leakage of bile and there was no need for any hemostatic maneuvers to the gallbladd er, subhepatic fossa. At this point, I sprayed Adilson hemostatic powder into the area of the previou s clips and into the subhepatic space and placed the patient in slightly head down to the left of the omentum to impact this area. At this point, the abdomen was inspected. No additional maneuvers wer e required, at this point. I closed the periumbilical trocar site using a Feliz-Georgiana suture pas ser with 0 Vicryl in an interrupted fashion with good approximation of tissues. The abdomen was desu fflated, at this point, under direct vision without incident or complication. Remainder of trocars w ere removed. All skin incisions were then copiously irrigated and closed with a 4-0 Monocryl in a ru nning fashion. Dermabond was placed over top. The patient tolerated the procedure well without inci dent or complication and transferred to PACU in good condition. All counts were correct at the end o f the case. CARLOS/BERNIE Voice ID: [id number] Report ID: [id number]
--- NOTE | 2024-04-16 12:27 | EKG ---
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
== END 2024-04-15 17:35 | disposition home or self-care (01) ==
LOC: OR 10:57
PROVIDERS: ATTEND Surgery
PROC: BF50200 Other Imaging of Bile Ducts using Fluorescing Agent, Indocyanine Green Dye, Intraoperative (ICD-10-PCS; 2024-04-15)
PROC: 0FT44ZZ Resection of Gallbladder, Percutaneous Endoscopic Approach (ICD-10-PCS; principal; 2024-04-15 12:30)
DX: K80.12 Calculus of gallbladder with acute and chronic cholecystitis without obstruction (principal); F41.9 Anxiety disorder, unspecified; F32.A Depression, unspecified; K57.92 Diverticulitis of intestine, part unspecified, without perforation or abscess without bleeding; Q44.1 Other congenital malformations of gallbladder
CPT/HCPCS: 88304; 93005; A4216; J0694; J2001; J2250; J2405; J2704; J3010; J7120

== ENCOUNTER 2024-06-18 09:55 | Observation (INO) | payer BC, OTHER ==
[2024-06-18 08:30] LABS: Anion Gap 7.6 mEq/L (5.0-15.0)
[2024-06-18 08:35] LABS: Potassium 4.6 mEq/L (3.5-5.1)
[2024-06-18] MEDS: CEFAZOLIN SODIUM 2 GM/VIAL ONE (10:10)
[2024-06-18] MEDS: Ringers Lactate 1,000 ML IV ONE ×2 (10:10→14:30)
[2024-06-18] MEDS: LIDOCAINE HCL/EPINEPHRINE 20 ML MDV ONE (12:57)
[2024-06-18] MEDS ORDERED: FENTANYL CITR 100 MCG/2 ML ONE ×3 (13:20→16:15)
[2024-06-18] MEDS ORDERED: LIDOCAINE 2% MPF 5 ML VIAL ONE (13:20)
[2024-06-18] MEDS ORDERED: ROCURONIUM 50 MG/5 ML VIAL IV ONE ×2 (13:20→14:26)
[2024-06-18] MEDS ORDERED: MIDAZOLAM HCL 2 MG/2 ML INJ ONE (13:20)
[2024-06-18] MEDS ORDERED: ONDANSETRON 4 MG/2 ML VIAL ONE ×2 (13:20→15:55)
[2024-06-18] MEDS ORDERED: propofoL 200 MG/20 ML VIAL IV ONE (13:20)
[2024-06-18] MEDS: CEFAZOLIN SODIUM 2 GM/VIAL IVPB ONE ×2 (13:22→13:50)
[2024-06-18] MEDS: LIDOCAINE HCL/EPINEPHRINE 20 ML MDV IJ ONE ×2 (13:22)
[2024-06-18] MEDS: SUGAMMADEX SODIUM 200 MG/2 ML VIAL IV ONE (13:25)
[2024-06-18] MEDS ORDERED: ALBUTEROL INHALER 200 PUFF/6.7 GM IH ONE ×2 (13:44→13:46)
[2024-06-18] MEDS ORDERED: dexAMETHasone 10 MG/ML VIAL ONE (13:50)
[2024-06-18] MEDS ORDERED: KETOROLAC 30 MG/ML INJ ONE (15:55)
--- NOTE | 2024-06-18 16:19 | P.OP ---
Preoperative diagnosis: Recurrent Ventral Incisional Hernia(s) Postoperative diagnosis: Recurrent Ventral Incisional Hernia(s) Primary procedure: Laparoscopic Ventral Hernia Repairs with mesh Secondary procedure: Laparoscopic Adhesiolysis > 2 hours Anesthesia: GETA + Local Estimated blood loss: <20cc Specimen: None Findings: Severe small bowel adhesions, multiple ventral hernias Complications: None Implants: Bard Ventralite ST x 2 ([id number]), 11.4 cm Round, Sorbafix x 100 Transferred to: Recovery Room Condition: Good
[2024-06-18] MEDS: HYDROMORPHONE HCL 1 MG/ML INJ ONE (16:45)
[2024-06-18] MEDS: FENTANYL CITR 100 MCG/2 ML ONE (17:10)
[2024-06-18 17:51] VITALS: BMI 46.9
[2024-06-18] MEDS: D5.45NS W/KCL 20MEQ 1,000 ML IV SCH (18:14)
[2024-06-18] MEDS: CEFAZOLIN 1 GM in NA CHLORIDE 0.9% 50 ML IVPB SCH (18:14)
[2024-06-18] MEDS: HYDROCODONE/APAP 7.5/325 MG TAB PO PRN (20:25)
[2024-06-18] MEDS: HYDROMORPHONE HCL 1 MG/ML INJ IV PRN (21:53)
[2024-06-19 01:27] VITALS: O2SAT 92
--- NOTE | 2024-06-19 02:01 | OP ---
Date of Procedure: 06/18/2024 Surgeon: Tonny Acharya MD, Preoperative Diagnosis: Multiple recurrent ventral incisional hernias. Postoperative Diagnosis: Multiple recurrent ventral incisional hernias. Procedures: Laparoscopic ventral hernia repair with mesh. Secondary procedure was laparoscopic adhe siolysis greater than 2 hours. Anesthesia: General endotracheal plus local 1% lidocaine. Estimated Blood Loss: 20 cc. Specimen: None. Findings: Severe multiple small-bowel adhesions to the anterior abdominal wall as well as to previou sly placed mesh in the midline in the suprapubic region, a large midline epigastric ventral hernia, p eriumbilical, separate ventral hernia, left lower quadrant ventral abdominal hernia. Complications: None. Implants: Bard Ventralight ST mesh with Echo Positioning System, 15 cm x 20 cm used in the midline a nd 11.4 cm second mesh, round mesh utilized in the left lower quadrant and SorbaFix absorbable fixati on tacks, a total of 100 tacks were utilized. Disposition: The patient was transferred to recovery room in good condition. Procedure In Detail: After informed consent was obtained, the patient was brought to the operating r oom, prepped and draped in the usual sterile fashion. After adequate anesthesia was achieved, I anes thetized an area in the left upper quadrant down to the subcutaneous tissue. 5 mm surgical optical t rocar was introduced in the abdomen without incident or complication. Insufflation obtained to 15 mm Hg, at this time. I placed 2 additional trocars, one in the left abdomen and one in the left lower q uadrant. All of these were similarly anesthetized, sharply incised, and 5 mm trocar was placed with the exception of the left mid abdomen, which is a 12 mm trocar placed under direct visualization with out any issue. I then performed an extensive adhesiolysis of severe adhesions to the midline, where previously placed mesh was noted with defects in portions of the mesh but not the entire mesh, in the midline, extending from the suprapubic region all the way to the lower supraumbilical midline. Neha re adhesions were caused by this mesh with small-bowel adhesions, which required extensive adhesiolys is to the midline using meticulous dissection and blunt dissection as well as Endo Ted. No bowel injuries were appreciated throughout the procedure. At this point, the LigaSure device was used as w ell in certain areas, without issue. At this point, I closed the hernia defect in the supraumbilical position using an Endo Stitch with a V-Loc suture. However, after completing, the Endo Stitch misfi red and continued to have issues with it and as such, I could not use the imbrication stitch for the remaining defects. At this point, I deployed a 15 x [address] mesh with [employer] System covering 2 of the midline hernia defects with several centimeters of underlay and secured it to the anterior abdominal wall using SorbaFix absorbable fixation tacks. A total of 65 screws we re used in the large mesh in the midline. After this was completed, the area was inspected. The bal loon deployment system found to be intact on the back table without issue. At this point, I turned m y attention to the left lower quadrant area. I deployed the 11.[address] mesh with [employer] Positioning System in this vicinity and the central portion and secured to the shelving edge of th e defect using the same SorbaFix absorbable fixation tacks, almost approximately 35 to 40 tacks were utilized. At this point, I closed the 12 mm trocar site using Feliz-Georgiana suture passer after he mostasis was achieved without any additional maneuvers. The abdomen was desufflated under direct vis ualization without incident or complication. After the 12 mm trocar site was closed using a Feliz-Britt vivar suture passer with an 0 Vicryl in interrupted fashion with good approximation of tissues, the abdomen was desufflated as discussed. All trocars were removed. All skin incisions were then copio usly irrigated and closed with interrupted tano, and a sterile dressing placed over top. The xochitl ent tolerated the procedure well without incident or complication and transferred to PACU in good condition. All counts were correct at the end of the case. CARLOS/BERNIE Voice ID: [id number] Report ID: [id number]
[2024-06-19 04:25] LABS: Absolute Basophils 0.1 K/uL (0-0.5); Absolute Lymphocytes (CBC) 1.5 K/uL (0.7-4.9); Absolute Monocytes 0.4 K/uL (0.1-1.3); Absolute Neutrophil 11.5 K/uL (1.8-8.0); Basophils % 0.6 % (0-1.3); Hematocrit 39.8 % (36.0-45.0); Hemoglobin 12.9 g/dL (12.0-15.0); Lymphocytes % 11.1 % (15.3-44.8); MCH 29.2 pg (27.0-35.0); MCHC 32.4 g/dL (32.0-36.0); MCV 90.2 fL (80-100); MPV 7.7 fL (7.6-11.3); Monocytes % 2.8 % (3.3-12.3); Neutrophils % 85.5 % (41.7-73.7); Platelets 291 thou/uL (152-406); RBC Red Blood Cell Count 4.42 M/uL (3.86-4.86); Red Cell Distribution Width 17.8 % (12.1-15.2)
[2024-06-19 05:00] LABS: Anion Gap 7.8 mEq/L (5.0-15.0); Potassium 4.8 mEq/L (3.5-5.1)
[2024-06-19 05:08] LABS: Magnesium 1.6 mg/dL (1.6-2.4); Phosphorus 3.1 mg/dL (2.5-4.9)
[2024-06-19 05:20] LABS: Band Neutrophils 12 % (0-1); Differential Total Cells Count 100; Lymphocytes 9 % (15-42); Monocytes 5 % (0-10); Reactive Lymphocytes 2 %; Segmented Neutrophils 72 % (40-80)
[2024-06-19 05:21] LABS: Blood Morphology Comment NOT SEEN (NOT SEEN); Platelet Estimate ADEQ
[2024-06-19] MEDS: MAGNESIUM SULFATE 1 gm IVPB 1 GM/100 ML BAG IV ONE (07:28)
[2024-06-20 07:17] VITALS: TEMP 97.1
[2024-06-20 07:41] LABS: Anion Gap 4.6 mEq/L (5.0-15.0); Magnesium 1.8 mg/dL (1.6-2.4); Potassium 3.6 mEq/L (3.5-5.1)
[2024-06-20] MEDS: MAGNESIUM SULFATE 1 gm IVPB 1 GM/100 ML BAG IV ONE (11:28)
[2024-06-20] MEDS: POTASSIUM CL SA 10 MEQ TAB PO ONE (11:29)
[2024-06-20 12:31] VITALS: BP 125/77
== END 2024-06-20 15:25 | disposition home or self-care (01) ==
LOC: OR 09:55 → 2ND 16:23
PROVIDERS: ADMIT Surgery; ATTEND Surgery
PROC: 0WUF4JZ Supplement Abdominal Wall with Synthetic Substitute, Percutaneous Endoscopic Approach (ICD-10-PCS; 2024-06-18)
PROC: 0DN84ZZ Release Small Intestine, Percutaneous Endoscopic Approach (ICD-10-PCS; principal; 2024-06-18 12:00)
DX: K43.2 Incisional hernia without obstruction or gangrene (principal); K66.0 Peritoneal adhesions (postprocedural) (postinfection)
CPT/HCPCS: 44180; 49615; 85025; 80048 ×3; 36415 ×2; 83735 ×2; 84703; 84100; 82947 ×7; 94010; J3475 ×2; J2704; J2003; J2250; J3010 ×4; J1100; J1171 ×12; J2405 ×2; G0378 ×4; J7120 ×2; J0690 ×4; C1781; G0379